=== PATIENT | male | born 1970 | race Two or more races ===

== ENCOUNTER 2016-12-14 08:21 | Emergency (ER) | payer SELFPAY ==
[2016-12-14] MEDS ORDERED: OXYCODONE-ACETAMINOPHEN 5-325 MG TABLET PO ONE (09:27)
--- NOTE | 2016-12-14 09:58 | RADIOLOGY REPORT (SQ) ---
EXAM DESCRIPTION: CT HEAD WITHOUT COMPLETED DATE/TIME: 12/14/2016 9:39 am REASON FOR STUDY: 1, fall; posterior hematoma COMPARISON: CT brain 05/22/2011, 07/25/2012, 04/01/2015 TECHNIQUE: Axial images acquired through the brain without intravenous contrast. Images reviewed wi th bone, brain and subdural windows. Images stored on PACS. All CT scanners at this facility use dose modulation, iterative reconstruction, and/or weight based d osing when appropriate to reduce radiation dose to as low as reasonably achievable (ALARA). [facility]: Dose Right [facility]: CareDose [facility]: Dose Right [facility]: Teradose 4D [facility]: Smart [employer] RADIATION DOSE: Up-to-date CT equipment and radiation dose reduction techniques were employed. CTDIv ol: 64.6 mGy. DLP: 1163 mGy-cm. mGy. LIMITATIONS: None. FINDINGS: VENTRICLES: Normal size and contour. CEREBRUM: No masses. No hemorrhage. No midline shift. No evidence for acute infarction. Normal gra y/white matter differentiation. No areas of low density in the white matter. CEREBELLUM: No masses. No hemorrhage. No alteration of density. No evidence for acute infarction. EXTRAAXIAL SPACES: No fluid collections. No masses. ORBITS AND GLOBE: No intra- or extraconal masses. Normal contour of globe without masses. CALVARIUM: No fracture. PARANASAL SINUSES: No fluid or mucosal thickening. SOFT TISSUES: Right parietal scalp hematoma without underlying skull fracture or acute intracranial h emorrhage OTHER: No other significant finding. IMPRESSION: RIGHT PARIETAL SCALP HEMATOMA WITHOUT UNDERLYING SKULL FRACTURE OR ACUTE INTRACRANIAL HE MORRHAGE. OTHERWISE, NORMAL BRAIN CT WITHOUT CONTRAST. EVIDENCE OF ACUTE STROKE: NO. COMMENT: Quality ID # [id number]: Final reports with documentation of one or more dose reduction techniques (e.g., Automated exposure control, adjustment of the mA and/or kV according to patient size, use of iterative reconstruction technique) TECHNICAL DOCUMENTATION: JOB ID: [id number]- All Rights Reserved
[2016-12-14] MEDS ORDERED: DIPH/PERTUSS(ACELL)/TETANUS VAC/PF 0.5 ML SYR (>=10YO) IM ONE (10:02)
--- NOTE | 2016-12-14 10:05 | ER Document Report ---
ED Fall - General Chief Complaint: Fall Injury Stated Complaint: HEAD INJURY Time Seen by Provider: 12/14/16 09:27 Information source: Patient Notes: 46-year-old male who presents today status post fall while at work. 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 He believes he lost consciousness. He denies being on any blood thinning medications. He denies any blurry vision, neck pain, vomiting, weakness or numbness. Patient is unsure of his tetanus status. TRAVEL OUTSIDE OF THE [place] IN LAST 30 DAYS: No - HPI Occurred: Just prior to arrival Where: Work Context: Slipped, Lost balance Associated symptoms: Lost consciousness Location of injury/pain: Other - See above Quality of pain: Achy Severity: Mild Pain Level: 1 Prehospital interventions: No: C-collar, Backboard - Related data Allergies/Adverse Reactions: No Known Allergies Allergy (Verified 12/14/16 08:45) Past Medical History - General Information source: Patient - Social History Smoking Status: Current Every Day Smoker Cigarette use (# per day): No Chew tobacco use (# tins/day): No Smoking Education Provided: No Frequency of alcohol use: None Drug Abuse: None Family History: Arthritis, CAD, CVA, DM, Hyperlipidemia, Hypertension Renal/ Medical History: Denies: Hx Peritoneal Dialysis Musculoskeltal Medical History: Reports Hx Arthritis, Reports Hx Musculoskeletal Trauma Psychiatric Medical History: Reports: Hx Depression Traumatic Medical History: Reports: Hx Fractures - clavicle Past Surgical History: Reports: Hx Abdominal Surgery - hernia x2, Hx Herniorrhaphy, Hx Inguinal Hernia - Immunizations Immunizations up to date: No Hx Diphtheria, Pertussis, Tetanus Vaccination: Yes Review of Systems - Review of Systems EENT: denies: Eye discharge, Blurred vision, Nose discharge Cardiovascular: denies: Chest pain, Palpitations Respiratory: denies: Short of breath Gastrointestinal: denies: Vomiting Musculoskeletal: denies: Back pain, Joint swelling, Muscle stiffness Skin: denies: Rash Neurological/Psychological: Other - no slurred speech -: Yes All other systems reviewed and negative Physical Exam - Vital signs Vitals: Temp Pulse Resp BP Pulse Ox 97.2 F 71 20 141/93 H 99 12/14/16 08:21 12/14/16 08:21 12/14/16 08:21 12/14/16 08:21 12/14/16 08:21 Notes: Reviewed vital signs and nursing note as charted by RN. CONSTITUTIONAL: Alert and oriented and responds appropriately to questions. Well -appearing; well-nourished HEAD: Patient has a posterior hematoma with some dried blood. No palpable skull fractures EYES: PERRL; full extraocular range of motion NECK: Supple without meningismus; non-tender CARD: Regular rate and rhythm; no murmurs RESP: Normal chest excursion without splinting or tachypnea; breath sounds clear and equal bilaterally; no tenderness to palpation of the anterior posterior ribs ABD/GI: Normal bowel sounds; non-distended; soft, non-tender BACK: The back appears normal and is non-tender to palpation EXT: Normal ROM in all joints; non-tender to palpation; no edema SKIN: No acute lesions noted other than the posterior occipital region NEURO: CN 2-12 intact. Pt has 5/5 bilateral upper and lower extremity strength with sensation intact to light touch. Pt has normal bilateral finger to nose. PSYCH: The patient's mood and manner are appropriate. Grooming and personal hygiene are appropriate. Course - Re-evaluation Re-evalutation: 12/14/16 10:04 Given the above history and physical examination we will perform a CT scan of the head and clean and irrigate the wound to evaluate for possible laceration. Patient currently has no focal neurological deficits. Tdap has been updated. 12/14/16 10:50 CT scan of the head is unremarkable other than the scalp hematoma. We have cleaned and dressed the wound appropriately. Tetanus has been updated. Patient still has no focal neurological deficits. Patient will be discharged home with strict return precautions and follow-up as needed. - Vital Signs Vital signs: Temp Pulse Resp BP Pulse Ox 97.2 F 71 20 141/93 H 99 12/14/16 08:21 12/14/16 08:21 12/14/16 08:21 12/14/16 08:21 12/14/16 08:21 Discharge - Discharge Clinical Impression: Closed head injury with brief loss of consciousness Condition: Good Disposition: HOME, SELF-CARE Additional Instructions: Come back immediately with any increased pain, blurry vision, weakness or numbness, persistent vomiting, or any other acute problems. Please follow-up with primary care physician or the [facility] as needed as we have discussed. Please apply bacitracin or Neosporin to your posterior head abrasion twice daily and keep the area clean and dry. May have some headaches, lightheadedness, dizziness during the next few weeks secondary to a possible concussion. Please do not engage in any activities that may cause a repeat head injury until your symptoms completely clear.
[2016-12-14 11:01] VITALS: BP 127/98
== END 2016-12-14 11:01 | disposition home or self-care (01) ==
LOC: ER 08:21
DX: S06.9X9A Unspecified intracranial injury with loss of consciousness of unspecified duration, initial encounter (principal); S00.03XA Contusion of scalp, initial encounter; W17.89XA Other fall from one level to another, initial encounter; Y93.89 Activity, other specified; Y99.0 Civilian activity done for income or pay; F17.200 Nicotine dependence, unspecified, uncomplicated; Z23 Encounter for immunization
CPT/HCPCS: 70450; 90471; 90715; 99284

== ENCOUNTER 2017-06-16 09:42 | Inpatient (IN) | payer SELFPAY ==
--- NOTE | 2017-06-16 10:12 | ER Document Report ---
ED Medical Screen (RME) - General Chief Complaint: Knee Pain Stated Complaint: RIGHT KNEE INJURY Time Seen by Provider: 06/16/17 10:10 Notes: pt has right knee pain for several days. 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 IN LAST 30 DAYS: No - Related Data Allergies/Adverse Reactions: No Known Allergies Allergy (Verified 06/16/17 09:44) Past Medical History - Social History Frequency of alcohol use: Rare Drug Abuse: None Renal/ Medical History: Denies: Hx Peritoneal Dialysis Musculoskeltal Medical History: Reports Hx Arthritis, Reports Hx Musculoskeletal Trauma Psychiatric Medical History: Reports: Hx Depression Traumatic Medical History: Reports: Hx Fractures - clavicle Past Surgical History: Reports: Hx Abdominal Surgery - hernia x2, Hx Herniorrhaphy, Hx Inguinal Hernia - Immunizations Immunizations up to date: No Hx Diphtheria, Pertussis, Tetanus Vaccination: Yes Physical Exam - Vital signs Vitals: Temp Pulse Resp BP Pulse Ox 98.4 F 94 16 119/67 98 06/16/17 09:51 06/16/17 09:51 06/16/17 09:51 06/16/17 09:51 06/16/17 09:51 Course - Vital Signs Vital signs: Temp Pulse Resp BP Pulse Ox 98.4 F 94 16 119/67 98 06/16/17 09:51 06/16/17 09:51 06/16/17 09:51 06/16/17 09:51 06/16/17 09:51
[2017-06-16] MEDS ORDERED: MORPHINE SULFATE 10 MG/ML INJ IV ONE (10:44)
[2017-06-16] MEDS ORDERED: PIPERACILLIN/TAZOBACTAM 4.5 GM VIAL IV ONE (10:44)
[2017-06-16] MEDS ORDERED: VANCOMYCIN HCL INJ 1000 MG VIAL IV ONE ×2 (10:44→14:15)
[2017-06-16 10:46] LABS: ABSOLUTE BASOPHILS # (AUTO) 0.2 10^3/uL (0.0-0.2); ABSOLUTE LYMPHOCYTES (AUTO) 1.4 10^3/uL (0.5-4.7); ABSOLUTE MONOCYTES (AUTO) 1.1 10^3/uL (0.1-1.4); ABSOLUTE NEUT (AUTO) 14.7 10^3/uL (1.7-8.2); BASOPHILS % (AUTO) 0.9 % (0-2); EOSINOPHILS % (AUTO) 0.2 % (0-6); HEMATOCRIT 43.3 % (37.9-51.0); HEMOGLOBIN 14.1 g/dL (13.5-17.0); LYMPHOCYTES % (AUTO) 8.2 % (13-45); MEAN CORPUSCULAR HEMOGLOBIN 27.9 pg (27.0-33.4); MEAN CORPUSCULAR HGB CONC 32.6 g/dL (32.0-36.0); MEAN CORPUSCULAR VOLUME 86 fl (80-97); MONOCYTES % (AUTO) 6.5 % (3-13); PLATELET COUNT 290 10^3/uL (150-450); RED BLOOD COUNT 5.05 10^6/uL (4.35-5.55); RED CELL DISTRIBUTION WIDTH 13.4 % (11.5-14.0); SEGMENTED NEUTROPHILS % (AUTO) 84.2 % (42-78); TOTAL CELLS COUNTED % (AUTO) 100 %; WHITE BLOOD COUNT 17.4 10^3/uL (4.0-10.5)
--- NOTE | 2017-06-16 10:47 | ER Document Report ---
ED General - General Chief Complaint: Knee Pain Stated Complaint: RIGHT KNEE INJURY Time Seen by Provider: 06/16/17 10:10 Mode of Arrival: Ambulatory Information source: Patient Notes: 47-year-old male presents with complaints of right knee pain of 3 day duration. Patient cuts would entries believes he may have gotten a splinter in his right knee. Patient notes it is difficult to move his red painful with streaking up to his groin TRAVEL OUTSIDE OF THE [place] IN LAST 30 DAYS: No - HPI Onset: Other - 2-3 days Onset/Duration: Worse Quality of pain: Sharp Severity: Moderate Pain Level: 3 Associated symptoms: Body/muscle aches Exacerbated by: Movement, Walking Relieved by: Denies Similar symptoms previously: No Recently seen / treated by doctor: No - Related Data Allergies/Adverse Reactions: No Known Allergies Allergy (Verified 06/16/17 09:44) Past Medical History - Social History Smoking Status: Current Every Day Smoker Cigarette use (# per day): Yes Chew tobacco use (# tins/day): No Smoking Education Provided: No Frequency of alcohol use: Rare Drug Abuse: None Family History: Arthritis, CAD, CVA, DM, Hyperlipidemia, Hypertension Patient has suicidal ideation: No Patient has homicidal ideation: No Renal/ Medical History: Denies: Hx Peritoneal Dialysis Musculoskeltal Medical History: Reports Hx Arthritis, Reports Hx Musculoskeletal Trauma Psychiatric Medical History: Reports: Hx Depression Traumatic Medical History: Reports: Hx Fractures - clavicle Past Surgical History: Reports: Hx Abdominal Surgery - hernia x2, Hx Herniorrhaphy, Hx Inguinal Hernia - Immunizations Immunizations up to date: No Hx Diphtheria, Pertussis, Tetanus Vaccination: Yes Review of Systems - Review of Systems Notes: REVIEW OF SYSTEMS: CONSTITUTIONAL : Denies fever, chills, or sweats. Denies recent illness. EENT: Denies eye, ear, throat, or mouth pain or symptoms. Denies nasal or sinus congestion or discharge. Denies throat, tongue, or mouth swelling or difficulty swallowing. CARDIOVASCULAR: Denies chest pain. Denies palpitations or racing or irregular heart beat. Denies ankle edema. RESPIRATORY: Denies cough, cold, or chest congestion. Denies shortness of breath, difficulty breathing, or wheezing. GASTROINTESTINAL: Denies abdominal pain or distention. Denies nausea, vomiting , or diarrhea. Denies blood in vomitus, stools, or per rectum. Denies black, tarry stools. Denies constipation. GENITOURINARY: Denies difficulty urinating, painful urination, burning, frequency, blood in urine, or discharge. MUSCULOSKELETAL: Right knee swelling SKIN: Right knee swelling redness HEMATOLOGIC : Denies easy bruising or bleeding. LYMPHATIC: Denies swollen, enlarged glands. NEUROLOGICAL: Denies confusion or altered mental status. Denies passing out or loss of consciousness. Denies dizziness or lightheadedness. Denies headache. Denies weakness or paralysis or loss of use of either side. Denies problems with gait or speech. Denies sensory loss, numbness, or tingling. Denies seizures. PSYCHIATRIC: Denies anxiety or stress. Denies depression, suicidal ideation, or homicidal ideation. ALL OTHER SYSTEMS REVIEWED AND NEGATIVE. Dictation was performed using [employer] voice recognition software PHYSICAL EXAMINATION: GENERAL: Well-appearing, well-nourished and in no acute distress. HEAD: Atraumatic, normocephalic. EYES: Pupils equal round and reactive to light, extraocular movements intact, sclera anicteric, conjunctiva are normal. ENT: Nares patent, oropharynx clear without exudates. Moist mucous membranes. NECK: Normal range of motion, supple without lymphadenopathy LUNGS: Breath sounds clear to auscultation bilaterally and equal. No wheezes rales or rhonchi. HEART: Regular rate and rhythm without murmurs ABDOMEN: Soft, nontender, nondistended abdomen. No guarding, no rebound. No masses appreciated. Musculoskeletal: Right knee is swollen limited range of motion with pain NEUROLOGICAL: Cranial nerves grossly intact. Normal speech, normal gait. Normal sensory, motor exams PSYCH: Normal mood, normal affect. SKIN: Right inguinal adenopathy, what appears to be a entrance wound of the knee itself with large effusion cellulitic component made tib-fib to mid thigh Physical Exam - Vital signs Vitals: Temp Pulse Resp BP Pulse Ox 98.4 F 94 16 119/67 98 06/16/17 09:51 06/16/17 09:51 06/16/17 09:51 06/16/17 09:51 06/16/17 09:51 Course - Re-evaluation Re-evalutation: 06/16/17 10:[address] Alba, expressed concerns for septic joint vs cellulitis, he will evaluate in ED . 06/16/17 12:06 Dr Alba does not believe it is a septic joint , requests hospitalist admission - Vital Signs Vital signs: Temp Pulse Resp BP Pulse Ox 98.4 F 94 16 119/67 98 06/16/17 09:51 06/16/17 09:51 06/16/17 09:51 06/16/17 09:51 06/16/17 09:51 - Laboratory Result Diagrams: 06/16/17 10:15 06/16/17 10:15 Laboratory results interpreted by me: 06/16/17 06/16/17 06/16/17 10:15 10:15 11:15 WBC 17.4 H Seg Neutrophils % 84.2 H Lymphocytes % 8.2 L Absolute Neutrophils 14.7 H ESR 37 H Carbon Dioxide 31 H C-Reactive Protein 55.2 H - Diagnostic Test Radiology reviewed: Image reviewed - xray 3 view notes swelling, Reports reviewed Discharge - Discharge Clinical Impression: Cellulitis Qualifiers: Site of cellulitis: extremity Site of cellulitis of extremity: lower extremity Laterality: right Qualified Code(s): L03.115 - Cellulitis of right lower limb Knee pain Qualifiers: Chronicity: acute Laterality: right Qualified Code(s): M25.561 - Pain in right knee Condition: Stable Disposition: ADMITTED INPATIENT Admitting Provider: Hospitalist Unit Admitted: Medical Floor
--- NOTE | 2017-06-16 11:14 | RADIOLOGY REPORT (SQ) ---
EXAM DESCRIPTION: KNEE RIGHT 3 VIEWS COMPLETED DATE/TIME: 06/16/2017 10:36 am REASON FOR STUDY: pain/possible fb COMPARISON: None. NUMBER OF VIEWS: Three views. TECHNIQUE: AP, lateral, and sunrise patella radiographic images acquired of the right knee. LIMITATIONS: None. FINDINGS: MINERALIZATION: Normal. BONES: No acute fracture or dislocation. No worrisome bone lesions. JOINT: No effusion. SOFT TISSUES: 4 mm radiopaque metallic object in the medial soft tissues. This appears to be near th e skin surface. Anterior soft tissue swelling. OTHER: No other significant finding. IMPRESSION: 4 MM RADIOPAQUE METALLIC OBJECT IN THE MEDIAL SOFT TISSUES. ANTERIOR SOFT TISSUE SWELLI NG. NO SIGNIFICANT BONY FINDINGS. TECHNICAL DOCUMENTATION: JOB ID: [id number] [employer]- All Rights Reserved Reading location - IP/workstation name: [email or web address]
--- NOTE | 2017-06-16 11:15 | RADIOLOGY REPORT (SQ) ---
EXAM DESCRIPTION: KNEE RIGHT 2 VIEWS COMPLETED DATE/TIME: 06/16/2017 11:03 am REASON FOR STUDY: foreign body knee, ALREADY HAVE IMAGES OF AP/LAT COMPARISON: None. NUMBER OF VIEWS: Two views. TECHNIQUE: Oblique radiographic images acquired of the right knee. LIMITATIONS: None. FINDINGS: MINERALIZATION: Normal. BONES: No acute fracture or dislocation. No worrisome bone lesions. JOINT: No effusion. SOFT TISSUES: 4 mm metallic foreign object in the medial soft tissues. Soft tissue swelling. OTHER: No other significant finding. IMPRESSION: 4 MM METALLIC FOREIGN OBJECT IN THE MEDIAL SOFT TISSUES. SOFT TISSUE SWELLING. NO SIGN IFICANT BONY FINDINGS. TECHNICAL DOCUMENTATION: JOB ID: [id number] [employer]- All Rights Reserved Reading location - IP/workstation name: [email or web address]
[2017-06-16 11:17] LABS: ALANINE AMINOTRANSFERASE 22 U/L (21-72); ALBUMIN 4.1 g/dL (3.5-5.0); ALKALINE PHOSPHATASE 93 U/L (38-126); ANION GAP 9 (5-19); ASPARTATE AMINO TRANSFERASE 18 U/L (17-59); BILIRUBIN,DIRECT 0.2 mg/dL (0.0-0.4); BILIRUBIN,TOTAL 0.6 mg/dL (0.2-1.3); BLOOD UREA NITROGEN 8 mg/dL (7-20); C-REACTIVE PROTEIN 55.2 mg/L (<10.0); CALCIUM 9.7 mg/dL (8.4-10.2); CARBON DIOXIDE 31 mmol/L (22-30); CHLORIDE 100 mmol/L (98-107); GLUCOSE 100 mg/dL (75-110); POTASSIUM 4.3 mmol/L (3.6-5.0); SODIUM 140.1 mmol/L (137-145); TOTAL PROTEIN 6.9 g/dL (6.3-8.2)
[2017-06-16 11:31] LABS: VENOUS BLOOD BASE EXCESS 0.2 mmol/L; VENOUS BLOOD HCO3 26.2 mmol/L (20-32); VENOUS BLOOD PCO2 47.6 mmHg (35-63); VENOUS BLOOD PH 7.36 (7.30-7.42)
[2017-06-16 11:44] LABS: INTERNATIONAL RATION (INR) 0.95; PROTHROMBIN TIME 13.2 SEC (11.4-15.4)
[2017-06-16] MEDS ORDERED: OXYCODONE-ACETAMINOPHEN 5-325 MG TABLET PO PRN (13:18)
[2017-06-16] MEDS ORDERED: ACETAMINOPHEN 325 MG TABLET PO PRN (13:18)
[2017-06-16] MEDS ORDERED: ONDANSETRON HCL INJ/PF 4 MG/2 ML SDV IV PRN (13:18)
[2017-06-16] MEDS ORDERED: ZOLPIDEM TARTRATE 5 MG TABLET PO PRN (13:18)
[2017-06-16] MEDS ORDERED: MAG HYDROX/AL HYDROX/SIMETH SUSP 30 ML UDCUP PO PRN (13:18)
[2017-06-16] MEDS ORDERED: VANCOMYCIN HCL 0 MG in DEXTROSE 5%-WATER 250 ML IV NR (13:30)
[2017-06-16 13:31] LABS: APPEARANCE,URINE CLEAR; BILIRUBIN,URINE NEGATIVE (NEGATIVE); COLOR,URINE STRAW; GLUCOSE, URINE NEGATIVE (NEGATIVE); KETONES,URINE NEGATIVE (NEGATIVE); LEUKOCYTE ESTERASE,URINE NEGATIVE (NEGATIVE); NITRITE,URINE NEGATIVE (NEGATIVE); PROTEIN,URINE NEGATIVE (NEGATIVE); URINE SPECIFIC GRAVITY 1.003; UROBILINOGEN,URINE NEGATIVE mg/dL (<2.0)
--- NOTE | 2017-06-16 14:12 | PDOC H&P ---
History of Present Illness Admission Date/PCP: 06/16/17 12:56 Patient complains of: Rt knee pain History of Present Illness: CHEMO WATSON is a 47 year old male with past medical history is significant only for tobacco abuse secondary to poor healthcare utilization and no primary acute care physician. He presented to the emergency department today with complaint of right knee pain, erythema, edema present for approximately 3 days. The patient works in [employer] and is concerned that he may have a splinter in the knee. He reports that he ran a fever last night that was not responsive to Tylenol. He describes pain 4 out of 5. Evaluation in the emergency department reveals normal sinus compliance, WBCs 17.4, elevated ESR and C-reactive protein. Imaging of the knee demonstrates a 4 mm metallic foreign body to the superficial tissue. Orthopedics was consulted by the emergency room physician and have ruled out septic arthritis. The patient is empirically placed on vancomycin and Zosyn. Blood cultures are pending. He is referred to the hospitalist service for admission and management of cellulitis. Past Medical History Cardiac Medical History: Reports: None Pulmonary Medical History: Reports: None EENT Medical History: Reports: None Neurological Medical History: Reports: None Endocrine Medical History: Reports: None Renal/ Medical History: Reports: None Malignancy Medical History: Reports: None GI Medical History: Reports: None Musculoskeltal Medical History: Reports: Arthritis Skin Medical History: Reports: None Psychiatric Medical History: Reports: Depression, Tobacco Dependency Traumatic Medical History: Reports: None Hematology: Reports: None Infectious Medical History: Reports: None Past Surgical History Past Surgical History: Reports: Herniorrhaphy Social History Information Source: Patient Lives with: Alone Smoking Status: Current Every Day Smoker Frequency of Alcohol Use: Rare Hx Recreational Drug Use: Yes Drugs: Marijuana Hx Prescription Drug Abuse: No - Advance Directive Resuscitation Status: Full Code Family History Family History: Arthritis, CAD, CVA, DM, Hyperlipidemia, Hypertension Parental Family History Reviewed: Yes Children Family History Reviewed: Yes Sibling(s) Family History Reviewed.: Yes Medication/Allergy Home Medications: No Home Medications 06/16/17 Allergies/Adverse Reactions: No Known Allergies Allergy (Verified 06/16/17 09:44) Review of Systems Constitutional: PRESENT: chills, fever(s). ABSENT: headache(s), weight gain, weight loss Eyes: ABSENT: visual disturbances Ears: ABSENT: hearing changes Cardiovascular: ABSENT: chest pain, dyspnea on exertion, edema, orthropnea, palpitations Respiratory: ABSENT: cough, hemoptysis Gastrointestinal: ABSENT: abdominal pain, constipation, diarrhea, hematemesis, hematochezia, nausea, vomiting Genitourinary: ABSENT: dysuria, hematuria Musculoskeletal: ABSENT: joint swelling Integumentary: PRESENT: as per HPI, erythema, wounds. ABSENT: rash Neurological: ABSENT: abnormal gait, abnormal speech, confusion, dizziness, focal weakness, syncope Psychiatric: ABSENT: anxiety, depression, homidical ideation, suicidal ideation Endocrine: ABSENT: cold intolerance, heat intolerance, polydipsia, polyuria Hematologic/Lymphatic: ABSENT: easy bleeding, easy bruising Physical Exam Vital Signs: Temp Pulse Resp BP Pulse Ox 98.4 F 94 16 119/67 98 06/16/17 09:51 06/16/17 09:51 06/16/17 09:51 06/16/17 09:51 06/16/17 09:51 General appearance: PRESENT: no acute distress, well-developed, well-nourished Head exam: PRESENT: atraumatic, normocephalic Eye exam: PRESENT: conjunctiva pink, EOMI, PERRLA. ABSENT: scleral icterus Ear exam: PRESENT: normal external ear exam Mouth exam: PRESENT: moist, tongue midline Neck exam: ABSENT: carotid bruit, JVD, lymphadenopathy, thyromegaly Respiratory exam: PRESENT: clear to auscultation dennise, symmetrical, unlabored. ABSENT: rales, rhonchi, wheezes Cardiovascular exam: PRESENT: RRR, +S1. ABSENT: diastolic murmur, rubs, systolic murmur Pulses: PRESENT: normal dorsalis pedis pul Vascular exam: PRESENT: normal capillary refill GI/Abdominal exam: PRESENT: normal bowel sounds, soft. ABSENT: distended, guarding, mass, organolmegaly, rebound, tenderness Rectal exam: PRESENT: deferred Extremities exam: PRESENT: full ROM. ABSENT: calf tenderness, clubbing, pedal edema Neurological exam: PRESENT: alert, awake, oriented to person, oriented to place , oriented to time, oriented to situation, CN II-XII grossly intact. ABSENT: motor sensory deficit Psychiatric exam: PRESENT: appropriate affect, normal mood. ABSENT: homicidal ideation, suicidal ideation Skin exam: PRESENT: dry, erythema - Erythema and edema to right knee extending to mid lower leg and to mid thigh proximally. Warm to touch. Extremely tender. , warm. ABSENT: cyanosis, intact, rash Results Impressions: Knee X-Ray 06/16/17 10:44 IMPRESSION: 4 MM METALLIC FOREIGN OBJECT IN THE MEDIAL SOFT TISSUES. SOFT TISSUE SWELLING. NO SIGNIFICANT BONY FINDINGS. Assessment & Plan - Diagnosis (1) Cellulitis Qualifiers: Site of cellulitis: extremity Site of cellulitis of extremity: lower extremity Laterality: right Qualified Code(s): L03.115 - Cellulitis of right lower limb Is this a current diagnosis for this admission?: Yes Plan: The patient is admitted with cellulitis of the right knee from a possible puncture injury approximately 3 days ago. Patient is currently afebrile but did have fever overnight. Leukocytosis with WBCs 217. Elevated sed rate and C- reactive protein. Orthopedics was consulted by the emergency department physician and ruled out septic arthritis. Imaging of the knee demonstrates a 4 mm metallic foreign body to the medial soft tissues. Soft tissue swelling. But no significant bony findings. Blood cultures are pending. The patient is admitted to the medical floor. He is empirically placed on IV vancomycin and Zosyn; we will adjust as cultures result. Oxycodone as needed for pain. Antiemetics as needed. Tylenol as needed for pain or fever. Elevate the extremity. We will consult surgery to evaluate for possible abscess developing to the patellar region as well as for possible foreign body removal. We will consult physical therapy. We will consult discharge planning to assess his needs. Heparin for DVT prophylaxis. (2) Leukocytosis Qualifiers: Leukocytosis type: bandemia Qualified Code(s): D72.825 - Bandemia Is this a current diagnosis for this admission?: Yes Plan: Secondary to cellulitis. Additionally evaluated urinalysis which is negative for UTI. Blood and urine cultures are pending. We will continue to monitor. Plan as above. (3) Tobacco dependency Is this a current diagnosis for this admission?: Yes Plan: Smoking cessation is encouraged; nicotine with placement therapies are provided. (4) Knee pain Qualifiers: Chronicity: acute Laterality: right Qualified Code(s): M25.561 - Pain in right knee Is this a current diagnosis for this admission?: Yes Plan: Secondary to cellulitis. Oxycodone and Tylenol as needed for pain. - Time Time Spent: 50 to 70 Minutes Smoking Cessation Education: 3 to 10 minutes Medications reviewed and adjusted accordingly: Yes Anticipated discharge: Home
--- NOTE | 2017-06-16 15:12 | EKG REPORT ---
SEVERITY:- NORMAL ECG - SINUS RHYTHM : Confirmed by: Ish Styles 16-Jun-2017 15:11:56
--- NOTE | 2017-06-16 16:53 | PDOC CONSULTATION ---
History of Present Illness Admission Date/PCP: 06/16/17 12:56 Patient complains of: Right knee pain History of Present Illness: CHEMO WATSON is a 47 year old male who presents to emergency room with increasing redness and swelling of his right knee. He feels as though he had original injury from a splinter but then noticed redness and swelling of his knee and difficulty weightbearing worsened over the past 72 hours. While in the emergency room he did receive morphine which improved his discomfort. Current pain 09/09. Past Medical History Cardiac Medical History: Reports: None Pulmonary Medical History: Reports: None EENT Medical History: Reports: None Neurological Medical History: Reports: None Endocrine Medical History: Reports: None Renal/ Medical History: Reports: None Malignancy Medical History: Reports: None GI Medical History: Reports: None Musculoskeltal Medical History: Reports: Arthritis Skin Medical History: Reports: None Psychiatric Medical History: Reports: Depression, Tobacco Dependency Traumatic Medical History: Reports: None Hematology: Reports: None Infectious Medical History: Reports: None Past Surgical History Past Surgical History: Reports: Herniorrhaphy Social History Lives with: Alone Smoking Status: Current Every Day Smoker Frequency of Alcohol Use: Rare Hx Recreational Drug Use: Yes Drugs: Marijuana Hx Prescription Drug Abuse: No - Advance Directive Resuscitation Status: Full Code Family History Family History: Arthritis, CAD, CVA, DM, Hyperlipidemia, Hypertension Parental Family History Reviewed: No Children Family History Reviewed: No Sibling(s) Family History Reviewed.: No Medication/Allergy Home Medications: No Home Medications 06/16/17 Allergies/Adverse Reactions: No Known Allergies Allergy (Verified 06/16/17 09:44) Review of Systems Constitutional: PRESENT: chills, fever(s). ABSENT: headache(s), weight gain, weight loss Eyes: ABSENT: visual disturbances Ears: ABSENT: hearing changes Cardiovascular: ABSENT: chest pain, dyspnea on exertion, edema, orthropnea, palpitations Respiratory: ABSENT: cough, hemoptysis Gastrointestinal: ABSENT: abdominal pain, constipation, diarrhea, hematemesis, hematochezia, nausea, vomiting Genitourinary: ABSENT: dysuria, hematuria Musculoskeletal: PRESENT: as per HPI Integumentary: ABSENT: rash, wounds Neurological: ABSENT: abnormal gait, abnormal speech, confusion, dizziness, focal weakness, syncope Psychiatric: ABSENT: anxiety, depression, homidical ideation, suicidal ideation Endocrine: ABSENT: cold intolerance, heat intolerance, menstrual abnormalities, polydipsia, polyuria Hematologic/Lymphatic: ABSENT: easy bleeding, easy bruising, lymphadenopathy Physical Exam Vital Signs: Temp Pulse Resp BP Pulse Ox 98.4 F 83 17 124/72 99 06/16/17 15:47 06/16/17 15:47 06/16/17 15:47 06/16/17 15:47 06/16/17 15:47 General appearance: PRESENT: no acute distress, well-developed, well-nourished Head exam: PRESENT: atraumatic, normocephalic Eye exam: PRESENT: conjunctiva pink, EOMI, PERRLA. ABSENT: scleral icterus Ear exam: PRESENT: normal external ear exam Mouth exam: PRESENT: moist, tongue midline Neck exam: PRESENT: full ROM. ABSENT: carotid bruit, JVD, lymphadenopathy, thyromegaly Cardiovascular exam: PRESENT: RRR. ABSENT: diastolic murmur, rubs, systolic murmur Pulses: PRESENT: normal dorsalis pedis pul, +2 pedal pulses bilateral Vascular exam: PRESENT: normal capillary refill GI/Abdominal exam: PRESENT: normal bowel sounds, soft. ABSENT: distended, guarding, mass, organolmegaly, rebound, tenderness Rectal exam: PRESENT: deferred Musculoskeletal exam: PRESENT: other - Right knee: Redness and erythema along the anterior aspect of the knee with streaking proximally. Palpable lymphadenopathy along the femoral lymph nodes. Knee range of motion 0-90. Pain with forced terminal flexion. No joint line tenderness. No palpable fluctuance. No evidence of prepatellar bursitis. Small superficial wound along the anterior medial aspect of the wound without active drainage. Unable to express purulence or drainage from the anterior abrasion. Neurological exam: PRESENT: alert, awake, oriented to person, oriented to place , oriented to time, oriented to situation, CN II-XII grossly intact. ABSENT: motor sensory deficit Psychiatric exam: PRESENT: appropriate affect, normal mood. ABSENT: homicidal ideation, suicidal ideation Skin exam: PRESENT: dry, intact, warm. ABSENT: cyanosis, rash Results Impressions: Knee X-Ray 06/16/17 10:44 IMPRESSION: 4 MM METALLIC FOREIGN OBJECT IN THE MEDIAL SOFT TISSUES. SOFT TISSUE SWELLING. NO SIGNIFICANT BONY FINDINGS. Status: Image reviewed by me - I have reviewed patient's radiographs demonstrate soft tissue swelling no evidence of foreign body at associated area. No evidence of effusion. Assessment & Plan - Diagnosis (1) Cellulitis Qualifiers: Site of cellulitis: extremity Site of cellulitis of extremity: lower extremity Laterality: right Qualified Code(s): L03.115 - Cellulitis of right lower limb Is this a current diagnosis for this admission?: Yes Plan: Patient has findings of cellulitis along the anterior aspect of the knee no associated septic arthritis or prepatellar bursitis is appreciated. There is concern of possible foreign body at this point I am unable to palpate foreign body or area of fluctuance area may define itself after antibiotics as the cause of his cellulitis however superficial wound could ultimately contribute to patient's findings. At this point patient will be treated with IV antibiotics if his symptoms significantly improved and there is no evidence of foci such as foreign body would recommend outpatient antibiotics. We will continue to follow patient clinically.
[2017-06-16] MEDS: HEPARIN SOD (PORCINE) 5,000 UNIT/ML 1 ML SYRINGE SUBCUT SCH ×2 (18:22→21:26)
[2017-06-16] MEDS: PIPERACILLIN SODIUM/TAZOBACTAM 3.375 GM in NORMAL SALINE 100 ML IV SCH ×2 (18:37→23:49)
[2017-06-16] MEDS: OXYCODONE-ACETAMINOPHEN 5-325 MG TABLET PO PRN ×2 (18:37→23:44)
[2017-06-16] MEDS: FAMOTIDINE 20 MG TABLET PO SCH (21:20)
[2017-06-16] MEDS ORDERED: VANCOMYCIN HCL 1,250 MG in DEXTROSE 5%-WATER 250 ML IV SCH (22:00)
[2017-06-17] MEDS: PIPERACILLIN SODIUM/TAZOBACTAM 3.375 GM in NORMAL SALINE 100 ML IV SCH ×3 (05:13→17:09)
[2017-06-17] MEDS: HEPARIN SOD (PORCINE) 5,000 UNIT/ML 1 ML SYRINGE SUBCUT SCH ×3 (05:15→21:11)
[2017-06-17] MEDS: OXYCODONE-ACETAMINOPHEN 5-325 MG TABLET PO PRN ×3 (06:15→23:07)
[2017-06-17 06:34] LABS: ABSOLUTE BASOPHILS # (AUTO) 0.1 10^3/uL (0.0-0.2); ABSOLUTE EOSINOPHILS # (AUTO) 0.1 10^3/uL (0.0-0.6); ABSOLUTE LYMPHOCYTES (AUTO) 1.7 10^3/uL (0.5-4.7); ABSOLUTE MONOCYTES (AUTO) 1.5 10^3/uL (0.1-1.4); ABSOLUTE NEUT (AUTO) 14.1 10^3/uL (1.7-8.2); BASOPHILS % (AUTO) 0.5 % (0-2); EOSINOPHILS % (AUTO) 0.5 % (0-6); HEMATOCRIT 40.1 % (37.9-51.0); HEMOGLOBIN 13.3 g/dL (13.5-17.0); LYMPHOCYTES % (AUTO) 9.6 % (13-45); MEAN CORPUSCULAR HEMOGLOBIN 28.5 pg (27.0-33.4); MEAN CORPUSCULAR HGB CONC 33.3 g/dL (32.0-36.0); MEAN CORPUSCULAR VOLUME 86 fl (80-97); MONOCYTES % (AUTO) 8.5 % (3-13); PLATELET COUNT 261 10^3/uL (150-450); RED BLOOD COUNT 4.68 10^6/uL (4.35-5.55); RED CELL DISTRIBUTION WIDTH 13.4 % (11.5-14.0); SEGMENTED NEUTROPHILS % (AUTO) 80.9 % (42-78); TOTAL CELLS COUNTED % (AUTO) 100 %; WHITE BLOOD COUNT 17.4 10^3/uL (4.0-10.5)
[2017-06-17 06:54] LABS: ANION GAP 11 (5-19); BLOOD UREA NITROGEN 8 mg/dL (7-20); CALCIUM 9.1 mg/dL (8.4-10.2); CARBON DIOXIDE 25 mmol/L (22-30); CHLORIDE 106 mmol/L (98-107); GLUCOSE 75 mg/dL (75-110); POTASSIUM 3.9 mmol/L (3.6-5.0)
[2017-06-17] MEDS: VANCOMYCIN HCL 1,250 MG in DEXTROSE 5%-WATER 250 ML IV SCH ×2 (07:32→21:10)
[2017-06-17] MEDS: NICOTINE 14 MG/24 HR PATCH.TD24 TD PRN (07:42)
--- NOTE | 2017-06-17 08:01 | PDOC PROGRESS REPORT ---
Subjective Progress Note for:: 06/17/17 Subjective:: Patient continues to complain of pain at his right knee but does feel as though it has somewhat improved. Has not had any fever chills since admission. Reason For Visit: CELLULITIS Physical Exam Vital Signs: Temp Pulse Resp BP Pulse Ox 99.3 F 84 16 109/70 98 06/16/17 23:29 06/16/17 23:29 06/16/17 23:29 06/16/17 23:29 06/16/17 23:29 Intake & Output 06/16/17 06/17/17 06/18/17 06:59 06:59 06:59 Intake Total 540 Output Total 500 Balance 40 Weight 68.7 kg Musculoskeletal exam: PRESENT: other - Right knee: Area of erythema anteriorly has notably improved. Continues to have erythema along the anterior surface of the knee proximal to the prepatellar bursa. No evidence of effusion. Patient has full extension with flexion to approximately 110 which has improved compared to previous examination. Upon palpation there is a small amount of purulence expressed anteriorly. No abscess appreciated. No evidence of streaking erythema proximally or distally. Results Laboratory Results: 06/17/17 05:15 06/17/17 05:15 06/17/17 06/17/17 05:15 05:15 WBC 17.4 H RBC 4.68 Hgb 13.3 L Hct 40.1 MCV 86 MCH 28.5 MCHC 33.3 RDW 13.4 Plt Count 261 Seg Neutrophils % 80.9 H Lymphocytes % 9.6 L Monocytes % 8.5 Eosinophils % 0.5 Basophils % 0.5 Absolute Neutrophils 14.1 H Absolute Lymphocytes 1.7 Absolute Monocytes 1.5 H Absolute Eosinophils 0.1 Absolute Basophils 0.1 Sodium 142.0 Potassium 3.9 Chloride 106 Carbon Dioxide 25 Anion Gap 11 BUN 8 Creatinine 0.85 Est GFR ( Amer) > 60 Est GFR (Non-Af Amer) > 60 Glucose 75 Calcium 9.1 Impressions: Knee X-Ray 06/16/17 10:44 IMPRESSION: 4 MM METALLIC FOREIGN OBJECT IN THE MEDIAL SOFT TISSUES. SOFT TISSUE SWELLING. NO SIGNIFICANT BONY FINDINGS. Assessment & Plan - Diagnosis (1) Cellulitis Qualifiers: Site of cellulitis: extremity Site of cellulitis of extremity: lower extremity Laterality: right Qualified Code(s): L03.115 - Cellulitis of right lower limb Is this a current diagnosis for this admission?: Yes Plan: Clinically patient has improved however there is not significant improvement in terms of his leukocytosis. Underlying retained foreign body remains within the differential I do not appreciate large abscess however. A 2 mm amount of purulence was expressed along the anterior aspect of the knee but I was unable to palpate any remaining purulence or express any additional purulence. I have recommended continuing IV antibiotics however if patient does not see improvement would consider MRI to evaluate for definitive abscess.
[2017-06-17] MEDS: FAMOTIDINE 20 MG TABLET PO SCH ×2 (09:55→21:11)
[2017-06-17] MEDS ORDERED: LORAZEPAM INJ 2 MG/1 ML VIAL IV ONE (11:25)
[2017-06-17] MEDS ORDERED: ACETAMINOPHEN SOLN 325 MG/10.15 ML UDCUP PO ONE (12:00)
[2017-06-17] MEDS: ONDANSETRON HCL INJ/PF 4 MG/2 ML SDV IV PRN (13:20)
--- NOTE | 2017-06-17 16:37 | PDOC PROGRESS REPORT ---
Subjective Progress Note for:: 06/17/17 Subjective:: CHEMO WATSON is a 47 year old male with a PMH of tobacco abuse secondary to poor health care utilization and no primary geriatric care manager. Presented to the emergency department 06/16/2017 with complaints of right knee pain, erythema, edema present for approximately 3 days. The patient works in [employer] is concerned that he may have a splinter in his knee. Imaging of the knee demonstrates a 4 mm metallic foreign body to the superficial tissue. Orthopedics was consulted by ER physician and have ruled out septic arthritis, but concern for underlying abscess. Patient is empirically on vancomycin and Zosyn. The patient was seen this morning on rounds, he is resting in bed on room air. The patient states he does not feel better but he does not feel worse compared to yesterday. According to Dr. Alba of Orthopedics, the patient's R knee appears to have clinically improved. That being said, the patient's leukocytosis (WBC 17) remains the same, and the patient spiked a fever today to 101. Will continue empiric antibiotic coverage, no plan to pursue MRI at this time given the improvement in appearance of the R knee. If the patient's condition should worsen, will need to consult with Ortho and Radiologist about how to evaluate for abscess in R knee (MRI will be difficult given the 4mm metalic object in superficial tissue). Earlier today, the patient endorsed left-sided chest pain. It was nonradiating and not reproducible with palpation. EKG demonstrated sinus tachycardia with no evidence of infarction or ischemia. Troponin <0.012. At the time of this episode, the patient reported he was very stressed out because he believed that he was going to "lose his right leg." The patient was given 1 mg IV Ativan for his anxiety. Reason For Visit: CELLULITIS Physical Exam Vital Signs: Temp Pulse Resp BP Pulse Ox 101.0 F H 106 H 18 134/78 H 99 06/17/17 10:59 06/17/17 10:59 06/17/17 10:59 06/17/17 10:59 06/17/17 10:59 Intake & Output 06/16/17 06/17/17 06/18/17 06:59 06:59 06:59 Intake Total 540 Output Total 500 Balance 40 Weight 68.7 kg General appearance: PRESENT: no acute distress, well-developed, well-nourished Head exam: PRESENT: atraumatic Eye exam: PRESENT: conjunctiva pink, PERRLA Mouth exam: PRESENT: moist Neck exam: PRESENT: full ROM Respiratory exam: PRESENT: clear to auscultation dennise, symmetrical, unlabored Cardiovascular exam: PRESENT: +S1, +S2, tachycardia Pulses: PRESENT: normal radial pulses, normal dorsalis pedis pul GI/Abdominal exam: PRESENT: normal bowel sounds, soft. ABSENT: tenderness Rectal exam: PRESENT: deferred Extremities exam: PRESENT: full ROM Musculoskeletal exam: PRESENT: full ROM, tenderness - Right knee Neurological exam: PRESENT: alert, awake, oriented to person, oriented to place , oriented to time, oriented to situation Psychiatric exam: PRESENT: anxious, appropriate affect Results Laboratory Results: 06/17/17 05:15 06/17/17 05:15 06/17/17 06/17/17 05:15 05:15 WBC 17.4 H RBC 4.68 Hgb 13.3 L Hct 40.1 MCV 86 MCH 28.5 MCHC 33.3 RDW 13.4 Plt Count 261 Seg Neutrophils % 80.9 H Lymphocytes % 9.6 L Monocytes % 8.5 Eosinophils % 0.5 Basophils % 0.5 Absolute Neutrophils 14.1 H Absolute Lymphocytes 1.7 Absolute Monocytes 1.5 H Absolute Eosinophils 0.1 Absolute Basophils 0.1 Sodium 142.0 Potassium 3.9 Chloride 106 Carbon Dioxide 25 Anion Gap 11 BUN 8 Creatinine 0.85 Est GFR ( Amer) > 60 Est GFR (Non-Af Amer) > 60 Glucose 75 Calcium 9.1 06/17/17 11:45 Troponin I < 0.012 Impressions: Knee X-Ray 06/16/17 10:44 IMPRESSION: 4 MM METALLIC FOREIGN OBJECT IN THE MEDIAL SOFT TISSUES. SOFT TISSUE SWELLING. NO SIGNIFICANT BONY FINDINGS. Status: Imported from PACS Assessment & Plan - Diagnosis (1) Chest pain Qualifiers: Chest pain type: unspecified Qualified Code(s): R07.9 - Chest pain, unspecified Is this a current diagnosis for this admission?: Yes Plan: Earlier this morning the patient began complaining of left-sided anterior wall chest pain. He states that his pain is nonradiating, and it is not reproducible with palpation. The patient denies SOB. The patient states that he is very anxious and stressed about potentially "losing his right leg." Despite being reassured that his leg will likely NOT require amputation, the patient remains relatively anxious. EKG demonstrates sinus tachycardia, no evidence of acute ischemia or infarction. Troponin<0.012, will trend x 2. Administered 1 mg Ativan IV for anxiety. This seems to have helped, no plan for further intervention at this time. (2) Cellulitis Qualifiers: Site of cellulitis: extremity Site of cellulitis of extremity: lower extremity Laterality: right Qualified Code(s): L03.115 - Cellulitis of right lower limb Is this a current diagnosis for this admission?: Yes Plan: The patient is admitted with cellulitis to the right knee from a possible puncture injury approximately 3 days ago. Patient did spike a fever to 101 today. Leukocytosis remains unchanged, WBC 17 Orthopedics was consulted by ER MD, they do not feel that the patient is demonstrating signs and symptoms of a septic joint. However, should the patient clinically deteriorate, there is a possibility of an abscess formation in the right knee. Imaging of the knee demonstrates a 4 mm metallic foreign body to the medial soft tissue. + Soft tissue swelling, but no significant bony findings. Blood cultures pending. Wound culture completed today. Admit to the medical floor. Empirically placed on IV vancomycin and Zosyn, will adjust his cultures result. P.o. oxycodone as needed for pain. Antiemetics as needed. Tylenol as needed for pain or fever. Elevate the extremity. Consult PT and discharge planning to assess for needs. SQ heparin for DVT PPX. (3) Leukocytosis Qualifiers: Leukocytosis type: bandemia Qualified Code(s): D72.825 - Bandemia Is this a current diagnosis for this admission?: Yes Plan: Secondary to cellulitis. Additionally evaluated urinalysis which is negative for UTI. Blood, urine, and wound culture pending. Plan as above. (4) Knee pain Qualifiers: Chronicity: acute Laterality: right Qualified Code(s): M25.561 - Pain in right knee Is this a current diagnosis for this admission?: Yes Plan: Secondary to cellulitis. Oxycodone and Tylenol as needed for pain. (5) Tobacco dependency Is this a current diagnosis for this admission?: Yes Plan: Smoking cessation is encouraged. Nicotine replacement therapies have been offered. - Time Time Spent with patient: 15-24 minutes Medications reviewed and adjusted accordingly: Yes Anticipated discharge: Home - Inpatient Certification Based on my medical assessment, after consideration of the patient's comorbidities, presenting symptoms, or acuity I expect that the services needed warrant INPATIENT care.: Yes I certify that my determination is in accordance with my understanding of Medicare's requirements for reasonable and necessary INPATIENT services [42 CFR 412.3e].: Yes Medical Necessity: Need for IV Antibiotics, Risk of Complication if Not Cared For in Hospital - Plan Summary Plan Summary: The plan is to continue broad-spectrum antibiotics. If the patient should clinically decline, low threshold for consulting ortho and radiology on how to assess for possible abscess in right knee.
--- NOTE | 2017-06-17 20:57 | EKG REPORT ---
SEVERITY:- BORDERLINE ECG - SINUS TACHYCARDIA PROBABLE LEFT ATRIAL ABNORMALITY : Confirmed by: Ish Styles 17-Jun-2017 20:56:27
[2017-06-18] MEDS: PIPERACILLIN SODIUM/TAZOBACTAM 3.375 GM in NORMAL SALINE 100 ML IV SCH ×4 (00:14→17:01)
[2017-06-18 05:16] LABS: ABSOLUTE BASOPHILS # (AUTO) 0.1 10^3/uL (0.0-0.2); ABSOLUTE EOSINOPHILS # (AUTO) 0.1 10^3/uL (0.0-0.6); ABSOLUTE LYMPHOCYTES (AUTO) 1.7 10^3/uL (0.5-4.7); ABSOLUTE MONOCYTES (AUTO) 1.3 10^3/uL (0.1-1.4); ABSOLUTE NEUT (AUTO) 12.5 10^3/uL (1.7-8.2); BASOPHILS % (AUTO) 0.4 % (0-2); EOSINOPHILS % (AUTO) 0.5 % (0-6); HEMATOCRIT 39.4 % (37.9-51.0); LYMPHOCYTES % (AUTO) 10.9 % (13-45); MEAN CORPUSCULAR HEMOGLOBIN 28.1 pg (27.0-33.4); MEAN CORPUSCULAR HGB CONC 33.1 g/dL (32.0-36.0); MEAN CORPUSCULAR VOLUME 85 fl (80-97); MONOCYTES % (AUTO) 8.5 % (3-13); PLATELET COUNT 290 10^3/uL (150-450); RED BLOOD COUNT 4.64 10^6/uL (4.35-5.55); SEGMENTED NEUTROPHILS % (AUTO) 79.7 % (42-78); TOTAL CELLS COUNTED % (AUTO) 100 %; WHITE BLOOD COUNT 15.7 10^3/uL (4.0-10.5)
[2017-06-18 05:39] LABS: ANION GAP 11 (5-19); BLOOD UREA NITROGEN 8 mg/dL (7-20); CALCIUM 9.3 mg/dL (8.4-10.2); CARBON DIOXIDE 28 mmol/L (22-30); CHLORIDE 101 mmol/L (98-107); GLUCOSE 99 mg/dL (75-110); PHOSPHORUS 4.3 mg/dL (2.5-4.5); POTASSIUM 3.9 mmol/L (3.6-5.0); SODIUM 140.3 mmol/L (137-145)
[2017-06-18] MEDS: HEPARIN SOD (PORCINE) 5,000 UNIT/ML 1 ML SYRINGE SUBCUT SCH ×3 (05:44→21:07)
[2017-06-18] MEDS: OXYCODONE-ACETAMINOPHEN 5-325 MG TABLET PO PRN ×2 (05:45→21:17)
[2017-06-18] MEDS: VANCOMYCIN HCL 1,250 MG in DEXTROSE 5%-WATER 250 ML IV SCH ×2 (07:40→21:07)
[2017-06-18] MEDS: NICOTINE 14 MG/24 HR PATCH.TD24 TD PRN (07:41)
[2017-06-18] MEDS ORDERED: GLUCAGON,HUMAN RECOMB 1 MG INJ SUBCUT PRN (08:12)
[2017-06-18] MEDS ORDERED: DEXTROSE 40% GEL 15 GM TUBE PO PRN ×2 (08:12)
[2017-06-18] MEDS ORDERED: DEXTROSE 50%-WATER 25 GM/50 ML DISP.SYRIN IV PRN ×2 (08:12)
[2017-06-18] MEDS ORDERED: OXYCODONE-ACETAMINOPHEN 5-325 MG TABLET PO PRN (09:13)
[2017-06-18] MEDS: FAMOTIDINE 20 MG TABLET PO SCH ×2 (09:29→21:07)
--- NOTE | 2017-06-18 09:50 | RADIOLOGY REPORT (SQ) ---
EXAM DESCRIPTION: U/S EXTREMITY NONVASCULAR COMP COMPLETED DATE/TIME: 06/18/2017 9:21 am REASON FOR STUDY: swelling and redness to knee , and cellulitis/infection evaluate for abscess or purvi int effusion COMPARISON: None. TECHNIQUE: Static and real time whitley scale ultrasound Doppler spectral analysis, and color Doppler o f the right knee soft tissues, joint space and suprapatellar recess. Patient was scanned by both mys elf as well as the technologist. LIMITATIONS: None. FINDINGS: A less than 5 mm foreign body is present in the subcutaneous fat medial right knee soft ti ssues. Patient states this has been there since he was 10 years old, but does not know the compositi on of the foreign body. Diffuse phlegmon with edema/interstitial fluid and increased color flow is seen throughout the right distal thigh and medial knee subcutaneous fat. No well circumscribed abscess is identified. Area of involvement is at least 10 to 12 cm in diameter. There is no suprapatellar knee joint effusion identified. No discrete prepatellar bursa fluid collec tion identified. Patellar and quadriceps tendons, right knee medial recess and lateral recess are unremarkable. Findings were discussed with Dr. Alba, 0900 hours 06/18/2017. IMPRESSION: Diffuse phlegmon in the subcutaneous tissues medial right knee. No well circumscribed a bscess is identified at this time. No suprapatellar knee joint effusion No prepatellar bursa fluid collection TECHNICAL DOCUMENTATION: JOB ID: [id number] All Rights Reserved Reading location - IP/workstation name: [email or web address]
[2017-06-18] MEDS: FENTANYL CITRATE INJ/PF 100 MCG/2 ML AMPUL IV PRN ×3 (11:28→17:01)
--- NOTE | 2017-06-18 12:01 | RADIOLOGY REPORT (SQ) ---
EXAM DESCRIPTION: CT RT LOWER EXTREMITY WITH COMPLETED DATE/TIME: 06/18/2017 10:57 am REASON FOR STUDY: redness and edema of Right Knee COMPARISON: None. TECHNIQUE: Postcontrast axial imaging performed through the right knee with reformatted coronal and sagittal imaging windowed for bone and soft tissues. Images saved to PACS. 3D IMAGING: Were 3D images as MIP, SSD, or volume rendering performed at the work station? No. All CT scanners at this facility use dose modulation, iterative reconstruction, and/or weight based d osing when appropriate to reduce radiation dose to as low as reasonably achievable (ALARA). [facility]: Dose Right [facility]: CareDose [facility]: Dose Right [facility]: Teradose 4D [facility]: [email or web address] CONTRAST TYPE AND DOSE: contrast/concentration: Isovue 370.00 mg/ml; Total Contrast Delivered: 75.0 ml; Total Saline Delivered: 80.0 ml RENAL FUNCTION: None required. The patient is less than 50 years old. LIMITATIONS: None. RADIATION DOSE: CT Rad equipment meets quality standard of care and radiation dose reduction techniq ues were employed. CTDIvol: 4.7 mGy. DLP: 170 mGy-cm.mGy. FINDINGS: SOFT TISSUES: Please correlate with the earlier ultrasound. Subcutaneous edema and ill-de fined fluid in the region of interest anteriorly. No well-defined simple loculated collection sugges pasquale. There is skin thickening present. No foreign body detected. No joint effusion. BONES: Intact. MINERALIZATION: Normal. OTHER: No other significant finding. IMPRESSION: 1. The CT examination adds little to the previously noted soft tissue findings detected on ultrasound earlier today. Please correlate with that report. 2. No bone pathology detected. TECHNICAL DOCUMENTATION: JOB ID: [id number] Quality ID # [id number]: Final reports with documentation of one or more dose reduction techniques (e.g., Au tomated exposure control, adjustment of the mA and/or kV according to patient size, use of iterative reconstruction technique) 2010 [employer]- All Rights Reserved Reading location - IP/workstation name: [email or web address]
--- NOTE | 2017-06-18 14:04 | PDOC PROGRESS REPORT ---
Subjective Progress Note for:: 06/18/17 Subjective:: Patient lying recombinant in hospital bed noting his knee hurts presently. He notes the pain is worse than yesterday and he hopes for something to be done about it today. Denies tingling, numbness, chest pain or shortness of breath. Reason For Visit: CELLULITIS Physical Exam Vital Signs: Temp Pulse Resp BP Pulse Ox 37.6 C 77 16 117/69 99 06/18/17 12:00 06/18/17 12:00 06/18/17 12:00 06/18/17 12:00 06/18/17 12:00 Intake & Output 06/17/17 06/18/17 06/19/17 06:59 06:59 06:59 Intake Total 540 891 Output Total 500 975 400 Balance 40 -84 -400 Weight 68.7 kg 65.4 kg General appearance: PRESENT: mild distress Head exam: PRESENT: atraumatic, normocephalic Extremities exam: PRESENT: tenderness Additional comments: patient lying recombinant in hospital bed with bilateral knees flexed. The right knee has focal area of edema, and eryhtema. The erythema from the day previous was outlined in skin marking pen. The eryhtma today extends outside this margin. There is a fluctuant bulla filled with purulent material along the anterior aspect of the right patella. This bulla and particularly medial aspect of the erythematous and edematous area is exquisitely tender to palpation. No purulent drainage is expressed with palpation. Knee is warm on palpation as well. He exhibites full passive range of motion. No sensory or motor deficits noted. +2 dorsalis pedis pulse and less than 2 seconds capillary refill to toes on left foot. Musculoskeletal exam: PRESENT: ambulatory Additional comments: Patient is ambulatory, however, notes pain in left knee with weight bearing. Psychiatric exam: PRESENT: appropriate affect, normal mood. ABSENT: homicidal ideation, suicidal ideation Results Laboratory Results: 06/18/17 05:06 06/18/17 05:06 06/18/17 06/18/17 06/18/17 05:06 05:06 09:32 WBC 15.7 H RBC 4.64 Hgb 13.0 L Hct 39.4 MCV 85 MCH 28.1 MCHC 33.1 RDW 13.0 Plt Count 290 Seg Neutrophils % 79.7 H Lymphocytes % 10.9 L Monocytes % 8.5 Eosinophils % 0.5 Basophils % 0.4 Absolute Neutrophils 12.5 H Absolute Lymphocytes 1.7 Absolute Monocytes 1.3 Absolute Eosinophils 0.1 Absolute Basophils 0.1 Sodium 140.3 Potassium 3.9 Chloride 101 Carbon Dioxide 28 Anion Gap 11 BUN 8 Creatinine 0.82 Est GFR ( Amer) > 60 Est GFR (Non-Af Amer) > 60 Glucose 99 Calcium 9.3 Phosphorus 4.3 Magnesium 2.0 Blood Type B POSITIVE Antibody Screen NEGATIVE 06/17/17 06/17/17 06/17/17 11:45 17:40 23:37 Troponin I < 0.012 < 0.012 < 0.012 Impressions: Knee X-Ray 06/16/17 10:44 IMPRESSION: 4 MM METALLIC FOREIGN OBJECT IN THE MEDIAL SOFT TISSUES. SOFT TISSUE SWELLING. NO SIGNIFICANT BONY FINDINGS. Extremity Ultrasound 06/18/17 00:00 IMPRESSION: Diffuse phlegmon in the subcutaneous tissues medial right knee. No well circumscribed abscess is identified at this time. No suprapatellar knee joint effusion No prepatellar bursa fluid collection Lower Extremity CT 06/18/17 00:00 IMPRESSION: 1. The CT examination adds little to the previously noted soft tissue findings detected on ultrasound earlier today. Please correlate with that report. 2. No bone pathology detected. Assessment & Plan - Diagnosis (1) Cellulitis Qualifiers: Site of cellulitis: extremity Site of cellulitis of extremity: lower extremity Laterality: right Qualified Code(s): L03.115 - Cellulitis of right lower limb Is this a current diagnosis for this admission?: Yes Plan: 47 yo male with cellulitis of left knee from possible puncture injury. US imaging reveals superficial phlegmon and no evidence of deep abscess, joint effusion. CT with contrast confirms similar results to ultrasound, no bone pathology detected. Preliminary blood cultures remain negative for growth of bacteria or other organisms and his leucocytosis has improved from 17 previously to 15 today. Clinically, his margins of erythema have expanded and superficial purulent bulla is present, yet no abscess formation is appreciated. At this time patient will remain on IV antibiotics and under observation. If symptoms worsen by tomorrow, patient may be placed on the OR schedule for surgical I&D of the left knee.
[2017-06-18] MEDS ORDERED: NORMAL SALINE 1000 ML 1,000 ML IV PRN (14:28)
[2017-06-18] MEDS ORDERED: METOCLOPRAMIDE HCL INJ/PF 10 MG/2 ML SDV IV ONE (14:36)
[2017-06-18] MEDS: ONDANSETRON HCL INJ/PF 4 MG/2 ML SDV IV PRN (14:43)
--- NOTE | 2017-06-18 16:03 | PDOC PROGRESS REPORT ---
Subjective Progress Note for:: 06/18/17 Subjective:: CHEMO WATSON is a 47 year old male with a PMH of tobacco abuse . Presented to the emergency department 06/16/2017 with complaints of right knee pain, erythema, edema present for approximately 3 days. Imaging of the knee demonstrates a 4 mm metallic foreign body to the superficial tissue. Orthopedics was consulted by ER physician and have ruled out septic arthritis, but concern for underlying abscess. Patient is empirically on vancomycin and Zosyn. The patient was seen this morning on rounds, he is resting in bed on room air. He is complaining of 4 out of 5 pain to the right knee. Clinically, the margins of erythema have expanded and there is a new superficial purulent bulla present on the anterior aspect of the right knee, almost directly over the patella. Dr. Alba of orthopedics has been made aware. The patient is currently awaiting reevaluation by orthopedics. Reason For Visit: CELLULITIS Physical Exam Vital Signs: Temp Pulse Resp BP Pulse Ox 98.6 F 91 20 128/73 H 98 06/18/17 15:34 06/18/17 15:34 06/18/17 15:34 06/18/17 15:34 06/18/17 15:34 Intake & Output 06/17/17 06/18/17 06/19/17 06:59 06:59 06:59 Intake Total 540 891 Output Total 500 975 400 Balance 40 -84 -400 Weight 68.7 kg 65.4 kg General appearance: PRESENT: no acute distress, well-developed, well-nourished Head exam: PRESENT: atraumatic Eye exam: PRESENT: conjunctiva pink, PERRLA Mouth exam: PRESENT: moist Neck exam: PRESENT: full ROM Respiratory exam: PRESENT: clear to auscultation dennise, symmetrical, unlabored Cardiovascular exam: PRESENT: +S1, +S2 Pulses: PRESENT: normal radial pulses, normal dorsalis pedis pul Vascular exam: PRESENT: normal capillary refill GI/Abdominal exam: PRESENT: normal bowel sounds, soft. ABSENT: tenderness Rectal exam: PRESENT: deferred Extremities exam: PRESENT: full ROM, joint swelling - Worsening erythema and swelling to right knee Musculoskeletal exam: PRESENT: ambulatory, full ROM Neurological exam: PRESENT: alert, awake, oriented to person, oriented to place , oriented to time, oriented to situation Psychiatric exam: PRESENT: appropriate affect Skin exam: PRESENT: erythema, other - Superficial purulent bulla 2 right knee Results Laboratory Results: 06/18/17 05:06 06/18/17 05:06 06/18/17 06/18/17 06/18/17 05:06 05:06 09:32 WBC 15.7 H RBC 4.64 Hgb 13.0 L Hct 39.4 MCV 85 MCH 28.1 MCHC 33.1 RDW 13.0 Plt Count 290 Seg Neutrophils % 79.7 H Lymphocytes % 10.9 L Monocytes % 8.5 Eosinophils % 0.5 Basophils % 0.4 Absolute Neutrophils 12.5 H Absolute Lymphocytes 1.7 Absolute Monocytes 1.3 Absolute Eosinophils 0.1 Absolute Basophils 0.1 Sodium 140.3 Potassium 3.9 Chloride 101 Carbon Dioxide 28 Anion Gap 11 BUN 8 Creatinine 0.82 Est GFR ( Amer) > 60 Est GFR (Non-Af Amer) > 60 Glucose 99 Calcium 9.3 Phosphorus 4.3 Magnesium 2.0 Blood Type B POSITIVE Antibody Screen NEGATIVE 06/17/17 06/17/17 06/17/17 11:45 17:40 23:37 Troponin I < 0.012 < 0.012 < 0.012 Impressions: Knee X-Ray 06/16/17 10:44 IMPRESSION: 4 MM METALLIC FOREIGN OBJECT IN THE MEDIAL SOFT TISSUES. SOFT TISSUE SWELLING. NO SIGNIFICANT BONY FINDINGS. Extremity Ultrasound 06/18/17 00:00 IMPRESSION: Diffuse phlegmon in the subcutaneous tissues medial right knee. No well circumscribed abscess is identified at this time. No suprapatellar knee joint effusion No prepatellar bursa fluid collection Lower Extremity CT 06/18/17 00:00 IMPRESSION: 1. The CT examination adds little to the previously noted soft tissue findings detected on ultrasound earlier today. Please correlate with that report. 2. No bone pathology detected. Status: Imported from PACS Assessment & Plan - Diagnosis (1) Cellulitis Qualifiers: Site of cellulitis: extremity Site of cellulitis of extremity: lower extremity Laterality: right Qualified Code(s): L03.115 - Cellulitis of right lower limb Is this a current diagnosis for this admission?: Yes Plan: The patient is admitted with cellulitis to the right knee from a possible puncture injury approximately 3 days ago. Leukocytosis improved, WBC 15, but overall clinical picture is worse. Orthopedics has been asked to reevaluate the patient for possible surgical I&D of the right knee. Currently awaiting their recommendations. Imaging of the knee demonstrates a 4 mm metallic foreign body to the medial soft tissue. + Soft tissue swelling, but no significant bony findings. Blood cultures pending. Wound culture completed today. Admit to the medical floor. Empirically placed on IV vancomycin and Zosyn, will adjust his cultures result. P.o. oxycodone as needed for mild to moderate pain, IV fentanyl for severe pain. Antiemetics as needed. Tylenol as needed for pain or fever. Elevate the extremity. Consult PT and discharge planning to assess for needs. SQ heparin for DVT PPX. (2) Leukocytosis Qualifiers: Leukocytosis type: bandemia Qualified Code(s): D72.825 - Bandemia Is this a current diagnosis for this admission?: Yes Plan: Secondary to cellulitis. Additionally evaluated urinalysis which is negative for UTI. Blood, urine, and wound culture pending. Plan as above. (3) Knee pain Qualifiers: Chronicity: acute Laterality: right Qualified Code(s): M25.561 - Pain in right knee Is this a current diagnosis for this admission?: Yes Plan: Secondary to cellulitis. Worsening knee pain today. Oxycodone and Tylenol as needed for mild to moderate pain. IV fentanyl as needed for severe pain (4) Chest pain Qualifiers: Chest pain type: unspecified Qualified Code(s): R07.9 - Chest pain, unspecified Is this a current diagnosis for this admission?: Yes Plan: Resolved. Yesterday morning the patient began complaining of left-sided anterior wall chest pain. He states that his pain is nonradiating, and it is not reproducible with palpation. The patient denies SOB. The patient states that he was very anxious and stressed about potentially "losing his right leg." EKG demonstrated sinus tachycardia, no evidence of acute ischemia or infarction. Serial troponin<0.012, no longer trending Administered 1 mg Ativan IV for anxiety. This seems to have helped, no plan for further intervention at this time. (5) Tobacco dependency Is this a current diagnosis for this admission?: Yes Plan: Smoking cessation is encouraged. Nicotine replacement therapies have been offered. - Time Time Spent with patient: 15-24 minutes Medications reviewed and adjusted accordingly: Yes Anticipated discharge: Home Within: within 72 hours - Inpatient Certification Based on my medical assessment, after consideration of the patient's comorbidities, presenting symptoms, or acuity I expect that the services needed warrant INPATIENT care.: Yes I certify that my determination is in accordance with my understanding of Medicare's requirements for reasonable and necessary INPATIENT services [42 CFR 412.3e].: Yes Medical Necessity: Need For IV Fluids, Need for IV Antibiotics, Risk of Complication if Not Cared For in Hospital - Plan Summary Plan Summary: At this time, the plan is for the patient to be evaluated by surgery given his worsening clinical picture. The patient will remain n.p.o. in anticipation of possible surgical I&D of the right knee. Will initiate IV fluids to maintain proper hydration. Type and screen to be completed today. Appreciate orthopedic recommendations.
[2017-06-18 20:20] LABS: VANCOMYCIN,TROUGH 5.9 ug/mL (5.0-20.0)
[2017-06-19] MEDS: OXYCODONE-ACETAMINOPHEN 5-325 MG TABLET PO PRN ×5 (01:31→21:56)
[2017-06-19] MEDS: PIPERACILLIN SODIUM/TAZOBACTAM 3.375 GM in NORMAL SALINE 100 ML IV SCH ×2 (01:31→05:35)
[2017-06-19] MEDS: HEPARIN SOD (PORCINE) 5,000 UNIT/ML 1 ML SYRINGE SUBCUT SCH ×3 (05:35→21:50)
[2017-06-19 05:58] LABS: ABSOLUTE BASOPHILS # (AUTO) 0.1 10^3/uL (0.0-0.2); ABSOLUTE EOSINOPHILS # (AUTO) 0.1 10^3/uL (0.0-0.6); ABSOLUTE LYMPHOCYTES (AUTO) 1.5 10^3/uL (0.5-4.7); ABSOLUTE MONOCYTES (AUTO) 1.2 10^3/uL (0.1-1.4); ABSOLUTE NEUT (AUTO) 9.2 10^3/uL (1.7-8.2); BASOPHILS % (AUTO) 0.6 % (0-2); EOSINOPHILS % (AUTO) 1.1 % (0-6); HEMATOCRIT 36.8 % (37.9-51.0); HEMOGLOBIN 12.3 g/dL (13.5-17.0); LYMPHOCYTES % (AUTO) 12.5 % (13-45); MEAN CORPUSCULAR HEMOGLOBIN 28.3 pg (27.0-33.4); MEAN CORPUSCULAR HGB CONC 33.4 g/dL (32.0-36.0); MEAN CORPUSCULAR VOLUME 85 fl (80-97); PLATELET COUNT 287 10^3/uL (150-450); RED BLOOD COUNT 4.34 10^6/uL (4.35-5.55); RED CELL DISTRIBUTION WIDTH 13.3 % (11.5-14.0); SEGMENTED NEUTROPHILS % (AUTO) 75.8 % (42-78); TOTAL CELLS COUNTED % (AUTO) 100 %; WHITE BLOOD COUNT 12.2 10^3/uL (4.0-10.5)
[2017-06-19 06:15] LABS: ANION GAP 9 (5-19); BLOOD UREA NITROGEN 7 mg/dL (7-20); CALCIUM 8.9 mg/dL (8.4-10.2); CARBON DIOXIDE 29 mmol/L (22-30); CHLORIDE 104 mmol/L (98-107); GLUCOSE 85 mg/dL (75-110); POTASSIUM 4.4 mmol/L (3.6-5.0); SODIUM 142.2 mmol/L (137-145)
--- NOTE | 2017-06-19 06:56 | PDOC PROGRESS REPORT ---
Subjective Progress Note for:: 06/19/17 Reason For Visit: CELLULITIS 47-year-old [place] male with a right knee cellulitis. Overall improvement over the last day from a symptomatic standpoint as well as from a laboratory standpoint. Physical Exam Vital Signs: Temp Pulse Resp BP Pulse Ox 36.4 C 85 14 117/81 97 06/18/17 23:56 06/18/17 23:56 06/18/17 23:56 06/18/17 23:56 06/18/17 23:56 Intake & Output 06/17/17 06/18/17 06/19/17 06:59 06:59 06:59 Intake Total 784 126 8297 Output Total 411 871 4422 Balance 40 -84 450 Weight 68.7 kg 65.4 kg 63.6 kg General appearance: PRESENT: no acute distress Head exam: PRESENT: normocephalic Respiratory exam: PRESENT: unlabored Cardiovascular exam: PRESENT: RRR Musculoskeletal exam: PRESENT: other - Right knee continues to be erythematous, indurated, and tender. Patient feels that this been clinical improvement from yesterday. Neurological exam: PRESENT: alert, awake, oriented to person, oriented to place , oriented to time, oriented to situation. ABSENT: motor sensory deficit Psychiatric exam: PRESENT: appropriate affect, normal mood. ABSENT: homicidal ideation, suicidal ideation Skin exam: PRESENT: dry, intact, warm. ABSENT: cyanosis, rash Results Laboratory Results: 06/19/17 05:20 06/19/17 05:20 06/18/17 06/18/17 06/19/17 09:32 19:50 05:20 WBC 12.2 H RBC 4.34 L Hgb 12.3 L Hct 36.8 L MCV 85 MCH 28.3 MCHC 33.4 RDW 13.3 Plt Count 287 Seg Neutrophils % 75.8 Lymphocytes % 12.5 L Monocytes % 10.0 Eosinophils % 1.1 Basophils % 0.6 Absolute Neutrophils 9.2 H Absolute Lymphocytes 1.5 Absolute Monocytes 1.2 Absolute Eosinophils 0.1 Absolute Basophils 0.1 Sodium Potassium Chloride Carbon Dioxide Anion Gap BUN Creatinine 0.84 Est GFR ( Amer) > 60 Est GFR (Non-Af Amer) > 60 Glucose Calcium Blood Type B POSITIVE Antibody Screen NEGATIVE 06/19/17 05:20 WBC RBC Hgb Hct MCV MCH MCHC RDW Plt Count Seg Neutrophils % Lymphocytes % Monocytes % Eosinophils % Basophils % Absolute Neutrophils Absolute Lymphocytes Absolute Monocytes Absolute Eosinophils Absolute Basophils Sodium 142.2 Potassium 4.4 Chloride 104 Carbon Dioxide 29 Anion Gap 9 BUN 7 Creatinine 0.79 Est GFR ( Amer) > 60 Est GFR (Non-Af Amer) > 60 Glucose 85 Calcium 8.9 Blood Type Antibody Screen 06/17/17 06/17/17 06/17/17 11:45 17:40 23:37 Troponin I < 0.012 < 0.012 < 0.012 Impressions: Knee X-Ray 06/16/17 10:44 IMPRESSION: 4 MM METALLIC FOREIGN OBJECT IN THE MEDIAL SOFT TISSUES. SOFT TISSUE SWELLING. NO SIGNIFICANT BONY FINDINGS. Extremity Ultrasound 06/18/17 00:00 IMPRESSION: Diffuse phlegmon in the subcutaneous tissues medial right knee. No well circumscribed abscess is identified at this time. No suprapatellar knee joint effusion No prepatellar bursa fluid collection Lower Extremity CT 06/18/17 00:00 IMPRESSION: 1. The CT examination adds little to the previously noted soft tissue findings detected on ultrasound earlier today. Please correlate with that report. 2. No bone pathology detected. Status: Imported from PACS Assessment & Plan - Diagnosis (1) Cellulitis Qualifiers: Site of cellulitis: extremity Site of cellulitis of extremity: lower extremity Laterality: right Qualified Code(s): L03.115 - Cellulitis of right lower limb Is this a current diagnosis for this admission?: Yes Plan: Patient reports improvement from yesterday symptomatically. He continues to be on empiric antibiotic therapy. Cultures are growing gram-positive cocci in clusters. Sensitivities are pending. White count is dropped to 12,000. I recommend that we continue with empiric antibiotics and tailor these when sensitivities are available. At this point there does not appear to be any indication for surgical intervention. We will continue on with course of observation. - Time Time Spent with patient: 15-24 minutes Anticipated discharge: Home with Homehealth Within: Other
[2017-06-19] MEDS: VANCOMYCIN HCL 1,250 MG in DEXTROSE 5%-WATER 250 ML IV SCH ×3 (07:49→23:12)
[2017-06-19] MEDS: FAMOTIDINE 20 MG TABLET PO SCH ×2 (09:23→21:50)
[2017-06-19] MEDS ORDERED: VANCOMYCIN HCL 1,250 MG in DEXTROSE 5%-WATER 250 ML IV SCH (16:00)
--- NOTE | 2017-06-19 16:45 | PDOC PROGRESS REPORT ---
Subjective Progress Note for:: 06/19/17 Subjective:: CHEMO WATSON is a 47 year old male with a PMH of tobacco abuse . Presented to the emergency department 06/16/2017 with complaints of right knee pain, erythema, edema present for approximately 3 days. Imaging of the knee demonstrates a 4 mm metallic foreign body to the superficial tissue. Orthopedics was consulted by ER physician and have ruled out septic arthritis, but concern for underlying abscess. Patient is empirically on vancomycin and Zosyn. The patient was seen this morning on rounds, he is resting in bed on room air. His pain in the right knee has greatly improved today. Clinically, the margins of erythema have greatly decreased and superficial purulent bulla on the anterior aspect of the right knee has also decreased in size. Dr. Mccann of orthopedics evaluated the patient this morning, no need for surgery at this time. Plan to continue with IV antibiotics. Wound culture positive for MRSA Reason For Visit: CELLULITIS Physical Exam Vital Signs: Temp Pulse Resp BP Pulse Ox 98.4 F 94 16 121/90 H 98 06/19/17 11:45 06/19/17 11:45 06/19/17 11:45 06/19/17 11:45 06/19/17 11:45 Intake & Output 06/18/17 06/19/17 06/20/17 06:59 06:59 06:59 Intake Total 891 1672 737 Output Total 975 1222 500 Balance -84 450 237 Weight 65.4 kg 63.6 kg General appearance: PRESENT: no acute distress Head exam: PRESENT: atraumatic Eye exam: PRESENT: conjunctiva pink, PERRLA Mouth exam: PRESENT: moist Neck exam: PRESENT: full ROM Respiratory exam: PRESENT: clear to auscultation dennise, symmetrical, unlabored Cardiovascular exam: PRESENT: RRR, +S1, +S2 Pulses: PRESENT: normal radial pulses, normal dorsalis pedis pul Vascular exam: PRESENT: normal capillary refill GI/Abdominal exam: PRESENT: normal bowel sounds, soft. ABSENT: tenderness Rectal exam: PRESENT: deferred Extremities exam: PRESENT: full ROM, joint swelling - Right knee, tenderness - TTP right knee Musculoskeletal exam: PRESENT: ambulatory, full ROM Neurological exam: PRESENT: alert, awake, oriented to person, oriented to place , oriented to time, oriented to situation Psychiatric exam: PRESENT: appropriate affect Results Laboratory Results: 06/19/17 05:20 06/19/17 05:20 06/18/17 06/19/17 06/19/17 19:50 05:20 05:20 WBC 12.2 H RBC 4.34 L Hgb 12.3 L Hct 36.8 L MCV 85 MCH 28.3 MCHC 33.4 RDW 13.3 Plt Count 287 Seg Neutrophils % 75.8 Lymphocytes % 12.5 L Monocytes % 10.0 Eosinophils % 1.1 Basophils % 0.6 Absolute Neutrophils 9.2 H Absolute Lymphocytes 1.5 Absolute Monocytes 1.2 Absolute Eosinophils 0.1 Absolute Basophils 0.1 Sodium 142.2 Potassium 4.4 Chloride 104 Carbon Dioxide 29 Anion Gap 9 BUN 7 Creatinine 0.84 0.79 Est GFR ( Amer) > 60 > 60 Est GFR (Non-Af Amer) > 60 > 60 Glucose 85 Calcium 8.9 06/17/17 10:30 Knee - Right Gram Stain - Final 06/17/17 10:30 Knee - Right Wound Culture - Final Mrsa (Meth Resis Staph Aureus) 06/17/17 06/17/17 06/17/17 11:45 17:40 23:37 Troponin I < 0.012 < 0.012 < 0.012 Impressions: Knee X-Ray 06/16/17 10:44 IMPRESSION: 4 MM METALLIC FOREIGN OBJECT IN THE MEDIAL SOFT TISSUES. SOFT TISSUE SWELLING. NO SIGNIFICANT BONY FINDINGS. Extremity Ultrasound 06/18/17 00:00 IMPRESSION: Diffuse phlegmon in the subcutaneous tissues medial right knee. No well circumscribed abscess is identified at this time. No suprapatellar knee joint effusion No prepatellar bursa fluid collection Lower Extremity CT 06/18/17 00:00 IMPRESSION: 1. The CT examination adds little to the previously noted soft tissue findings detected on ultrasound earlier today. Please correlate with that report. 2. No bone pathology detected. Status: Imported from PACS Assessment & Plan - Diagnosis (1) Cellulitis Qualifiers: Site of cellulitis: extremity Site of cellulitis of extremity: lower extremity Laterality: right Qualified Code(s): L03.115 - Cellulitis of right lower limb Is this a current diagnosis for this admission?: Yes Plan: The patient is admitted with cellulitis to the right knee from a possible puncture injury approximately 3 days ago. Leukocytosis improved, WBC 12, and overall clinical picture is improving. Orthopedics has reevaluated the patient, no plan for surgery at this time. Imaging of the knee demonstrates a 4 mm metallic foreign body to the medial soft tissue. + Soft tissue swelling, but no significant bony findings. Blood cultures no growth for 24 hours. WOUND CULTURE POSITIVE FOR MRSA. Admit to the medical floor. Continue IV vancomycin, discontinue Zosyn P.o. oxycodone as needed for mild to moderate pain, IV fentanyl for severe pain. Antiemetics as needed. Tylenol as needed for pain or fever. Elevate the extremity. Consult PT and discharge planning to assess for needs. SQ heparin for DVT PPX. (2) Leukocytosis Qualifiers: Leukocytosis type: bandemia Qualified Code(s): D72.825 - Bandemia Is this a current diagnosis for this admission?: Yes Plan: Improving. Secondary to cellulitis. Additionally evaluated urinalysis which is negative for UTI. Blood, urine, and wound culture pending. Plan as above. (3) Knee pain Qualifiers: Chronicity: acute Laterality: right Qualified Code(s): M25.561 - Pain in right knee Is this a current diagnosis for this admission?: Yes Plan: Secondary to cellulitis. Worsening knee pain today. Oxycodone and Tylenol as needed for mild to moderate pain. IV fentanyl as needed for severe pain (4) Tobacco dependency Is this a current diagnosis for this admission?: Yes Plan: Smoking cessation is encouraged. Nicotine replacement therapies have been offered. - Time Time Spent with patient: 15-24 minutes Medications reviewed and adjusted accordingly: Yes Anticipated discharge: Home Within: within 24 hours - Inpatient Certification Based on my medical assessment, after consideration of the patient's comorbidities, presenting symptoms, or acuity I expect that the services needed warrant INPATIENT care.: Yes I certify that my determination is in accordance with my understanding of Medicare's requirements for reasonable and necessary INPATIENT services [42 CFR 412.3e].: Yes Medical Necessity: Need for IV Antibiotics - Plan Summary Plan Summary: Ultimately, the plan is to discharge the patient home on oral antibiotics.
[2017-06-20] MEDS: HEPARIN SOD (PORCINE) 5,000 UNIT/ML 1 ML SYRINGE SUBCUT SCH (06:24)
[2017-06-20] MEDS: VANCOMYCIN HCL 1,250 MG in DEXTROSE 5%-WATER 250 ML IV SCH (08:11)
[2017-06-20] MEDS: OXYCODONE-ACETAMINOPHEN 5-325 MG TABLET PO PRN (08:18)
[2017-06-20] MEDS: FAMOTIDINE 20 MG TABLET PO SCH (10:16)
[2017-06-20 14:19] VITALS: BP 128/73
--- NOTE | 2017-06-20 14:38 | PDOC PROGRESS REPORT ---
Subjective Progress Note for:: 06/20/17 Subjective:: When I entered the patient's room this afternoon he was not present. I found the patient standing at the nursing station collecting papers for his discharge. Patient reports he had been discharged by hospitalist service and it was indicated to him that he could leave the hospital around 2:00 PM. Therefore he was attempting to leave. Patient was informed to return to his room until discharge paperwork as well as the orders are placed. He agreed and returned to his room. Patient reports his pain is significantly improved and he can now touch and perform active range of motion of the knee without pain. He is very pleased with his progress and desires to be discharged. Denies tingling or numbness presently. Reason For Visit: CELLULITIS Physical Exam Vital Signs: Temp Pulse Resp BP Pulse Ox 37.1 C 72 16 128/73 H 99 06/20/17 14:17 06/20/17 14:17 06/20/17 14:17 06/20/17 14:17 06/20/17 14:17 Intake & Output 06/19/17 06/20/17 06/21/17 06:59 06:59 06:59 Intake Total 1672 1359 Output Total 1222 800 Balance 450 559 Weight 63.6 kg 66.7 kg General appearance: PRESENT: no acute distress, well-developed, well-nourished Additional comments: Patient sitting on the edge of hospital bed fully clothed with shoes on. Focal area of edema and erythema is much decreased from previous demarcated margins of right knee. He is nontender to palpation. There is a gauze dressing placed over anterior aspect of right knee. It is placed over previous location of superficial bulla. He exhibits full strength and range of motion of the right knee in terms of flexion extension internal/external rotation. He notes no pain on initiation of motion or with weightbearing and ambulation. Leg lengths equal distal neurovascular exam intact. Musculoskeletal exam: PRESENT: ambulatory Additional comments: Patient is ambulatory and notes no pain with weightbearing or ambulation. Results Laboratory Results: 06/19/17 05:20 06/19/17 05:20 06/17/17 10:30 Knee - Right Gram Stain - Final 06/17/17 10:30 Knee - Right Wound Culture - Final Mrsa (Meth Resis Staph Aureus) 06/17/17 06/17/17 06/17/17 11:45 17:40 23:37 Troponin I < 0.012 < 0.012 < 0.012 Impressions: Knee X-Ray 06/16/17 10:44 IMPRESSION: 4 MM METALLIC FOREIGN OBJECT IN THE MEDIAL SOFT TISSUES. SOFT TISSUE SWELLING. NO SIGNIFICANT BONY FINDINGS. Extremity Ultrasound 06/18/17 00:00 IMPRESSION: Diffuse phlegmon in the subcutaneous tissues medial right knee. No well circumscribed abscess is identified at this time. No suprapatellar knee joint effusion No prepatellar bursa fluid collection Lower Extremity CT 06/18/17 00:00 IMPRESSION: 1. The CT examination adds little to the previously noted soft tissue findings detected on ultrasound earlier today. Please correlate with that report. 2. No bone pathology detected. Assessment & Plan - Diagnosis (1) Cellulitis Qualifiers: Site of cellulitis: extremity Site of cellulitis of extremity: lower extremity Laterality: right Qualified Code(s): L03.115 - Cellulitis of right lower limb Is this a current diagnosis for this admission?: Yes - Plan Summary Plan Summary: 47-year-old male with cellulitis of the right knee. Patient has clinically improved as have laboratory values. He is no longer tender to palpation and can perform full range of motion without pain in the right knee as well as ambulate. Leukocytosis is resolving with most recent value 12.2. Wound cultures are positive for MRSA and IV antibiotic therapy had been switched from Zosyn to vancomycin. At this time patient is under the impression that he has been discharged by hospitalist service. Patient was informed that from an orthopedic standpoint he does not require surgery and is stable for discharge. He was advised, however to continue antibiotic therapy prescribed by hospitalist service. Patient voiced understanding and is in agreement with this plan. He will follow-up with his primary care provider once he has completed oral antibiotic therapy. We would like to thank you for the consult and continued care of this patient.
== END 2017-06-20 14:35 | disposition home or self-care (01) | DRG 603 ==
LOC: ER 09:42 → EH 12:56 → 4N 16:13
PROVIDERS: ADMIT Internal Medicine; ATTEND Internal Medicine
DX: L03.115 Cellulitis of right lower limb (principal); S81.041A Puncture wound with foreign body, right knee, initial encounter; B95.62 Methicillin resistant Staphylococcus aureus infection as the cause of diseases classified elsewhere; R07.9 Chest pain, unspecified; D72.825 Bandemia; M25.561 Pain in right knee; X58.XXXA Exposure to other specified factors, initial encounter; F17.210 Nicotine dependence, cigarettes, uncomplicated; Y93.9 Activity, unspecified; Y92.9 Unspecified place or not applicable
CPT/HCPCS: 36415; 76881; 80048; 80053; 80202; 81001; 82565; 82803; 83605; 83735; 84100; 84484; 85025; 85610; 85652; 86140; 86850; 86900; 86901; 87040; 87070; 87077; 87086; 87186; 87205; 93005; 93010; 96365; 96375; 99285; J1644; J2060; J2270; J2405; J2543; J2765; J3010; J3370; J3490; J7060

== ENCOUNTER 2018-12-06 10:18 | Emergency (ER) | payer SELFPAY ==
[2018-12-06 10:54] LABS: APPEARANCE,URINE CLOUDY; BILIRUBIN,URINE SMALL (NEGATIVE); COLOR,URINE AMBER; GLUCOSE, URINE NEGATIVE (NEGATIVE); KETONES,URINE TRACE mg/dL (NEGATIVE); LEUKOCYTE ESTERASE,URINE SMALL (NEGATIVE); NITRITE,URINE NEGATIVE (NEGATIVE); PROTEIN,URINE 30 mg/dL (NEGATIVE); URINE SPECIFIC GRAVITY 1.024
[2018-12-06] MEDS ORDERED: KETOROLAC TROMETHAMINE 60 MG/2 ML SDV IM ONE (11:22)
--- NOTE | 2018-12-06 12:19 | ER Document Report ---
Entered by LONDON NEWELL SCRIBE 12/06/18 1122 Acting as scribe for:KETTY VARGAS MD ED GI/ - General Chief Complaint: Testicular Swelling Stated Complaint: FALL/GROIN PAIN Time Seen by Provider: 12/06/18 11:15 Mode of Arrival: Ambulatory Information source: Patient Notes: Patient is a 48-year-old male who presents to the emergency department today with complaints of left testicle swelling and pain. Patient states yesterday his dog jumped up on to him striking his left testicle. Patient states the dog is quite large, over 100 pounds. Patient has had pain and swelling since this occurred. TRAVEL OUTSIDE OF THE [place] IN LAST 30 DAYS: No - Related Data Allergies/Adverse Reactions: No Known Allergies Allergy (Verified 12/06/18 10:33) Past Medical History - General Information source: Patient, [facility] Records - Social History Smoking Status: Current Every Day Smoker Cigarette use (# per day): Yes - 1/2 ppd Chew tobacco use (# tins/day): No Smoking Education Provided: No Frequency of alcohol use: None Drug Abuse: None Occupation: manager research and development Family History: Reviewed & Not Pertinent, Arthritis, CAD, CVA, DM, Hyperlipidemia, Hypertension Patient has suicidal ideation: No Patient has homicidal ideation: No Musculoskeletal Medical History: Reports Hx Arthritis, Reports Hx Musculoskeletal Trauma Psychiatric Medical History: Reports: Hx Depression Traumatic Medical History: Reports: Hx Fractures - clavicle Past Surgical History: Reports: Hx Inguinal Hernia - Left sided, repaired twice - Immunizations Immunizations up to date: No Hx Diphtheria, Pertussis, Tetanus Vaccination: Yes Review of Systems - Review of Systems Constitutional: No symptoms reported EENT: No symptoms reported Cardiovascular: No symptoms reported Respiratory: No symptoms reported Gastrointestinal: No symptoms reported Genitourinary: No symptoms reported Male Genitourinary: See HPI, Testicular pain Musculoskeletal: No symptoms reported Skin: No symptoms reported Hematologic/Lymphatic: No symptoms reported Neurological/Psychological: No symptoms reported -: Yes All other systems reviewed and negative Physical Exam - Notes Notes: Physical Exam: General: Alert, appears well. HEENT: Normocephalic. Atraumatic. PERRL. Extraocular movements intact. Oropharynx clear. Neck: Supple. Non-tender. Respiratory: No respiratory distress. Clear and equal breath sounds bilaterally. Cardiovascular: Regular rate and rhythm. Abdominal: Normal Inspection. Non-tender. No distension. Normal Bowel Sounds. Male genitourinary: Left testicle is grossly swollen with associated scrotal wall erythema. The backside of the left testicle is exquisitely tender with palpation over the epididymis. Back: No gross abnormalities. Extremities: Moves all four extremities. Upper extremities: Normal inspection. Normal ROM. Lower extremities: Normal inspection. No edema. Normal ROM. Neurological: Normal cognition. AAOx4. Normal speech. Psychological: Normal affect. Normal Mood. Skin: Warm. Dry. Normal color. Course - Laboratory Result Diagrams: 12/06/18 12:00 12/06/18 12:00 Laboratory results interpreted by me: 12/06/18 12/06/18 10:36 12:00 WBC 12.4 H Lymph % (Auto) 8.3 L Absolute Neuts (auto) 10.5 H Seg Neutrophils % 85.1 H Urine Protein 30 H Urine Ketones TRACE H Urine Bilirubin SMALL H Urine Urobilinogen 4.0 H Ur Leukocyte Esterase SMALL H Urine Ascorbic Acid 40 H - Diagnostic Test Radiology reviewed: Image reviewed, Reports reviewed - Ultrasound shows a left hydrocele with probable chronic epididymitis. Discharge - Discharge Clinical Impression: Hydrocele, left, Epididymitis, left Condition: Stable Disposition: HOME, SELF-CARE Additional Instructions: Hydrocele You have been diagnosed as having a hydrocele. The sac that holds the testicles is called the scrotum. A hydrocele is usually a painless collection of fluid in the membrane that covers the testicle(s). This may be present at or develop later on in life. The cause is usually unknown. In infants a hydrocele can be due to a miscommunication of the fluid surrounding the testes. In adults a hydrocele may form due to injury or inflammation of surrounding structures. Most hydroceles require no treatment, and usually resolve on their own. However, sometimes surgical intervention is recommended for recurrent, or for unusually large hydroceles. The surgery to fix a hydrocele is a minor procedure and usually takes about 1 and 1/2 hours. Epididymitis You have epididymitis. This is an inflammation of the organ just behind the testicle, called the epididymis. It can be due to infection in the bladder or prostate. Many cases are simply inflammation and are not caused by germs. Epididymitis often develops after heavy lifting or vigorous exercise. Antibiotics and antiinflammatory medication are often prescribed. Elevation of the scrotum with a jock-strap or tight briefs will help with the pain. Pain medication may be required. Either cold packs or warm sitz baths can help with the pain -- ask your doctor which he recommends for your case. It may take 10 to 14 days until the pain is gone. Avoid heavy lifting during this time. Call the doctor or go to the hospital if you develop fever, increasing pain, or severe swelling, or if you fail to improve as expected. Take the medications as prescribed. Use good scrotal support. Avoid any heavy lifting or straining. Avoid any prolonged standing or walking. Drink plenty of fluids. Soaking in warm water may help the pain. Follow-up with a local urologist for evaluation of your hydrocele and your epididymitis if not improving. RETURN TO THE EMERGENCY ROOM IF ANY NEW OR WORSENING SYMPTOMS. Prescriptions: Doxycycline Hyclate 100 mg PO BID #20 tablet.dr Gutierrezroxen [Naprosyn 250 mg Tablet] 500 mg PO DAILY #30 tablet Hydrocodone/Acetaminophen [[place] 5-325 mg Tablet] 1 tab PO Q4 PRN #12 tablet PRN Reason: Forms: Return to Work Referrals: [facility] [Provider Group] - Follow up as needed Scribe Attestation: 12/06/18 11:46 I personally performed the services described in the documentation, reviewed and edited the documentation which was dictated to the scribe in my presence, and it accurately records my words and actions. I personally performed the services described in the documentation, reviewed and edited the documentation which was dictated to the scribe in my presence, and it accurately records my words and actions.
[2018-12-06 12:23] LABS: ABSOLUTE MONOCYTES (AUTO) 0.7 10^3/uL (0.1-1.4); ABSOLUTE NEUT (AUTO) 10.5 10^3/uL (1.7-8.2); BASOPHILS % (AUTO) 0.3 % (0-2); EOSINOPHILS % (AUTO) 0.4 % (0-6); HEMATOCRIT 41.1 % (37.9-51.0); HEMOGLOBIN 13.6 g/dL (13.5-17.0); LYMPHOCYTES % (AUTO) 8.3 % (13-45); MEAN CORPUSCULAR HEMOGLOBIN 28.6 pg (27.0-33.4); MEAN CORPUSCULAR HGB CONC 33.1 g/dL (32.0-36.0); MEAN CORPUSCULAR VOLUME 86 fl (80-97); MONOCYTES % (AUTO) 5.9 % (3-13); PLATELET COUNT 426 10^3/uL (150-450); RED BLOOD COUNT 4.77 10^6/uL (4.35-5.55); RED CELL DISTRIBUTION WIDTH 13.4 % (11.5-14.0); SEGMENTED NEUTROPHILS % (AUTO) 85.1 % (42-78); TOTAL CELLS COUNTED % (AUTO) 100 %; WHITE BLOOD COUNT 12.4 10^3/uL (4.0-10.5)
[2018-12-06 12:43] LABS: ALBUMIN 4.2 g/dL (3.5-5.0); ALKALINE PHOSPHATASE 95 U/L (38-126); ANION GAP 9 (5-19); ASPARTATE AMINO TRANSFERASE 21 U/L (17-59); BILIRUBIN,DIRECT 0.1 mg/dL (0.0-0.4); BILIRUBIN,TOTAL 0.5 mg/dL (0.2-1.3); BLOOD UREA NITROGEN 9 mg/dL (7-20); CARBON DIOXIDE 30 mmol/L (22-30); CHLORIDE 99 mmol/L (98-107); GLUCOSE 91 mg/dL (75-110); POTASSIUM 4.8 mmol/L (3.6-5.0); TOTAL PROTEIN 7.5 g/dL (6.3-8.2)
--- NOTE | 2018-12-06 13:35 | RADIOLOGY REPORT (SQ) ---
EXAM DESCRIPTION: U/S SCROTUM W/DOPPLER COMPLETED DATE/TIME: 12/06/2018 1:07 pm REASON FOR STUDY: Left testicle pain and swelling COMPARISON: None. TECHNIQUE: Static and realtime whitley scale imaging of the scrotum and testes. Selected color Doppler and spectral images recorded to document blood flow. LIMITATIONS: None. FINDINGS: RIGHT: TESTICLE: Normal size. Normal echotexture. Normal blood flow. No mass. EPIDIDYMIS: Normal. HYDROCELE OR VARICOCELE: No. HERNIA OR EXTRA-TESTICULAR MASS: No. OTHER: No other significant finding. LEFT: TESTICLE: Normal size. Normal echotexture. Normal blood flow. No mass. EPIDIDYMIS: Diffuse heterogenous enlargement. HYDROCELE OR VARICOCELE: Hydrocele containing septations and debris. HERNIA OR EXTRA-TESTICULAR MASS: No. OTHER: No other significant finding. IMPRESSION: 1. LEFT-SIDED HYDROCELE CONTAINING SEPTATIONS AND DEBRIS. 2. DIFFUSE HETEROGENOUS ENLARGEMENT OF THE EPIDIDYMIS. NO SIGNIFICANT HYPERVASCULARITY. THIS COULD BE DUE TO CHRONIC EPIDIDYMITIS. 3. NORMAL TESTICULAR ULTRASOUND. NO EVIDENCE OF TESTICULAR MASS OR TORSION. TECHNICAL DOCUMENTATION: JOB ID: [id number]- All Rights Reserved Reading location - IP/workstation name: [email or web address]
[2018-12-06] MEDS ORDERED: LIDOCAINE 1% INJ-PF (10 MG/ML) 30 ML SDV INJ ONE (13:51)
[2018-12-06] MEDS ORDERED: DOXYCYCLINE HYCLATE 100 MG TABLET PO ONE (13:51)
[2018-12-06] MEDS ORDERED: CEFTRIAXONE INJ 1000 MG VIAL IM ONE (13:51)
[2018-12-06 14:47] LABS: CHLAM PCR NOT DETECTED (NOT DETECT)
[2018-12-06 15:23] VITALS: BP 108/77
== END 2018-12-06 15:45 | disposition home or self-care (01) ==
LOC: ER 10:18
DX: N43.3 Hydrocele, unspecified (principal); N45.1 Epididymitis; N50.89 Other specified disorders of the male genital organs; F17.210 Nicotine dependence, cigarettes, uncomplicated
CPT/HCPCS: 36415; 87086; 85025; 87088; 80053; 81001; 87491; 87591; 76870; 93976; J1885; J3490; J0696; 87186; 96372; 99284

== ENCOUNTER 2019-01-05 11:21 | Emergency (ER) | payer SELFPAY ==
--- NOTE | 2019-01-05 11:33 | ER Document Report ---
ED Medical Screen (RME) - General Chief Complaint: Testicular Pain Stated Complaint: TESTICULAR PAIN Time Seen by Provider: 01/05/19 11:29 Mode of Arrival: Ambulatory Information source: Patient Notes: 28-year-old male presents to ED for complaint of left testicular pain since yesterday morning. He states that the left scrotum is larger than the right. He states no pain with urination and denies any blood in his urine. Patient had already gone to the bathroom before I examined him. He will be ordered a urine and a scrotal ultrasound states he smokes a pack a day alcohol no drugs. Any previous history of testicle pain or swelling states he is not on any medications I have greeted and performed a rapid initial assessment of this patient. A comprehensive ED assessment and evaluation of the patient, analysis of test results and completion of medical decision making process will be conducted by an additional ED providers. TRAVEL OUTSIDE OF THE [place] IN LAST 30 DAYS: No - Related Data Allergies/Adverse Reactions: No Known Allergies Allergy (Verified 12/06/18 10:33) Past Medical History Renal/ Medical History: Denies: Hx Peritoneal Dialysis Musculoskeltal Medical History: Reports Hx Arthritis, Reports Hx Musculoskeletal Trauma Psychiatric Medical History: Reports: Hx Depression Traumatic Medical History: Reports: Hx Fractures - clavicle Past Surgical History: Reports: Hx Abdominal Surgery - hernia x2, Hx Herniorrhaphy, Hx Inguinal Hernia - Left sided, repaired twice - Immunizations Immunizations up to date: No Hx Diphtheria, Pertussis, Tetanus Vaccination: Yes Physical Exam - Vital signs Vitals: Temp Pulse Resp BP Pulse Ox 97.8 F 73 18 140/94 H 100 01/05/19 11:24 01/05/19 11:24 01/05/19 11:24 01/05/19 11:24 01/05/19 11:24 Course - Vital Signs Vital signs: Temp Pulse Resp BP Pulse Ox 97.8 F 73 18 140/94 H 100 01/05/19 11:24 01/05/19 11:24 01/05/19 11:24 01/05/19 11:24 01/05/19 11:24
--- NOTE | 2019-01-05 12:10 | ER Document Report ---
ED GI/ - General Chief Complaint: Testicular Pain Stated Complaint: TESTICULAR PAIN Time Seen by Provider: 01/05/19 11:29 Primary Care Provider: [facility] [Primary Care Provider] - Follow up as needed Mode of Arrival: Ambulatory Information source: Patient TRAVEL OUTSIDE OF THE [place] IN LAST 30 DAYS: No - HPI Patient complains to provider of: Testicular pain Onset: Other - Pt. with L testicular pain for the past 1-2 days. He was seen in the ED recently for the same - Related Data Allergies/Adverse Reactions: No Known Allergies Allergy (Verified 01/05/19 11:30) Past Medical History - General Information source: Patient - Social History Smoking Status: Current Every Day Smoker Chew tobacco use (# tins/day): No Drug Abuse: None Family History: Reviewed & Not Pertinent, Arthritis, CAD, CVA, DM, Hyperlipidemia, Hypertension Patient has suicidal ideation: No Patient has homicidal ideation: No Renal/ Medical History: Denies: Hx Peritoneal Dialysis Musculoskeletal Medical History: Reports Hx Arthritis, Reports Hx Musculoskeletal Trauma Psychiatric Medical History: Reports: Hx Depression Traumatic Medical History: Reports: Hx Fractures - clavicle Past Surgical History: Reports: Hx Abdominal Surgery - hernia x2, Hx Herniorrhaphy, Hx Inguinal Hernia - Left sided, repaired twice - Immunizations Immunizations up to date: No Hx Diphtheria, Pertussis, Tetanus Vaccination: Yes Physical Exam - Vital signs Vitals: Temp Pulse Resp BP Pulse Ox 97.8 F 73 18 140/94 H 100 01/05/19 11:24 01/05/19 11:24 01/05/19 11:24 01/05/19 11:24 01/05/19 11:24 Course - Re-evaluation Re-evalutation: 01/05/19 15:42 Pt. feels somewhat better after pain meds in the ED -- I have spoken to Dr. Panda at [facility] and he has reviewed the scans and other labs. He feels the pt. can be dischanrged on Bactrim and pain meds and he will see in the office later this week. - Vital Signs Vital signs: Temp Pulse Resp BP Pulse Ox 97.8 F 73 18 140/94 H 100 01/05/19 11:24 01/05/19 11:24 01/05/19 11:24 01/05/19 11:24 01/05/19 11:24 - Laboratory Result Diagrams: 01/05/19 11:45 Laboratory results interpreted by me: 01/05/19 01/05/19 11:45 11:45 WBC 17.1 H RDW 14.2 H Lymph % (Auto) 8.7 L Absolute Neuts (auto) 14.5 H Seg Neutrophils % 84.7 H Urine Protein 30 H Urine Nitrite (Reflex) POSITIVE H Leukocyte Esterase Rfl LARGE H - Diagnostic Test Radiology reviewed: Reports reviewed - L epididymo-orchitis and L hydrocele - [facility] Time consulted: 15:47 Consulted provider: follow-up in office Discharge - Discharge Clinical Impression: Epididymo-orchitis without abscess Hydrocele Qualifiers: Hydrocele type: unspecified Qualified Code(s): N43.3 - Hydrocele, unspecified Condition: Stable Disposition: HOME, SELF-CARE Instructions: Anti-Inflammatory Medication ([facility]), Epididymitis ([facility]) Additional Instructions: rest, take medications as prescribed, return if worse Prescriptions: Sulfamethoxazole/Trimethoprim [Bactrim Ds Tablet] 1 each PO BID #20 tablet Etodolac [Lodine] 400 mg PO BID #14 tablet Oxycodone HCl/Acetaminophen [Percocet 5-325 mg Tablet] 1 tab PO ASDIR PRN #15 tab PRN Reason: Referrals: [facility] [Primary Care Provider] - Follow up as needed RICHARDSON PANDA MD [NO LOCAL MD] - Follow up as needed
[2019-01-05 12:13] LABS: AMORPHOUS SEDIMENT,URINE TRACE /HPF; APPEARANCE,URINE CLOUDY; BILIRUBIN,URINE NEGATIVE (NEGATIVE); GLUCOSE, URINE NEGATIVE (NEGATIVE); KETONES,URINE NEGATIVE (NEGATIVE); PROTEIN,URINE 30 mg/dL (NEGATIVE); URINE SPECIFIC GRAVITY 1.023; UROBILINOGEN,URINE NEGATIVE mg/dL (<2.0)
[2019-01-05 12:14] LABS: COLOR,URINE YELLOW
[2019-01-05 12:16] LABS: ABSOLUTE EOSINOPHILS # (AUTO) 0.1 10^3/uL (0.0-0.6); ABSOLUTE LYMPHOCYTES (AUTO) 1.5 10^3/uL (0.5-4.7); ABSOLUTE NEUT (AUTO) 14.5 10^3/uL (1.7-8.2); BASOPHILS % (AUTO) 0.2 % (0-2); EOSINOPHILS % (AUTO) 0.7 % (0-6); HEMOGLOBIN 14.9 g/dL (13.5-17.0); LYMPHOCYTES % (AUTO) 8.7 % (13-45); MEAN CORPUSCULAR HEMOGLOBIN 28.8 pg (27.0-33.4); MEAN CORPUSCULAR HGB CONC 33.2 g/dL (32.0-36.0); MEAN CORPUSCULAR VOLUME 87 fl (80-97); MONOCYTES % (AUTO) 5.7 % (3-13); PLATELET COUNT 302 10^3/uL (150-450); RED BLOOD COUNT 5.18 10^6/uL (4.35-5.55); RED CELL DISTRIBUTION WIDTH 14.2 % (11.5-14.0); SEGMENTED NEUTROPHILS % (AUTO) 84.7 % (42-78); TOTAL CELLS COUNTED % (AUTO) 100 %; WHITE BLOOD COUNT 17.1 10^3/uL (4.0-10.5)
[2019-01-05] MEDS ORDERED: TRAMADOL HCL 50 MG TABLET PO ONE (12:30)
[2019-01-05] MEDS ORDERED: HYDROCODONE/ACETAMINOPHEN 5-325 MG TABLET PO ONE (13:35)
[2019-01-05 13:43] LABS: CHLAM PCR NOT DETECTED (NOT DETECT)
--- NOTE | 2019-01-05 14:40 | RADIOLOGY REPORT (SQ) ---
EXAM DESCRIPTION: U/S SCROTUM W/DOPPLER COMPLETED DATE/TIME: 01/05/2019 1:26 pm REASON FOR STUDY: Left scrotal pain and swelling COMPARISON: 12/06/2018 TECHNIQUE: Static and realtime whitley scale imaging of the scrotum and testes. Selected color Doppler and spectral images recorded to document blood flow. LIMITATIONS: None. FINDINGS: RIGHT: TESTICLE: The right testicle measures 3.5 x 2.8 x 1.6 cm, normal size. Normal echotexture. Normal b lood flow. No mass. EPIDIDYMIS: The head of the epididymis measures 1.0 x 0.8 x 1.0 cm. Normal. HYDROCELE OR VARICOCELE: No. HERNIA OR EXTRA-TESTICULAR MASS: No. OTHER: No other significant finding. LEFT: TESTICLE: The left testicle measures 4.3 x 3.0 x 2.5 cm. Normal size. Normal echotexture. Increase d vascularity is suggested. No mass. EPIDIDYMIS: The head of the epididymis measures 1.4 x 2.5 x 2.0 cm and is prominent in size. Diffus e heterogenous echotexture. These are stable finding since the prior examination. New finding of in creased vascularity. HYDROCELE OR VARICOCELE: As on the previous examination, a complex hydrocele contains septations and debris. HERNIA OR EXTRA-TESTICULAR MASS: No. OTHER: Diffuse thickening of the scrotal skin on the left, probably on an inflammatory basis. IMPRESSION: 1. Increased vascularity is demonstrated within the left testicle and the epididymis, n ew finding since the prior study dated 12/06/2018. Diffuse left scrotal skin thickening and enlargeme nt of the left epididymis. Considerations for these findings include left epididymo--orchitis. 2. Complex appearing left hydrocele with septations and debris, unchanged from the prior study. 3. Normal testicular ultrasound on the right. COMMENT: 1. The results of this examination were discussed with emergency department washer assembler on at 14:29 hours. TECHNICAL DOCUMENTATION: JOB ID: [id number]- All Rights Reserved Reading location - IP/workstation name: [email or web address]
[2019-01-05] MEDS ORDERED: CEFTRIAXONE INJ 500 MG VIAL IM ONE (15:32)
[2019-01-05] MEDS ORDERED: LIDOCAINE 1% INJ-PF (10 MG/ML) 30 ML SDV NEB ONE (15:32)
[2019-01-05] MEDS ORDERED: LIDOCAINE 1% INJ-PF (10 MG/ML) 30 ML SDV IM ONE (15:36)
[2019-01-05 16:04] VITALS: BP 130/65
== END 2019-01-05 16:04 | disposition home or self-care (01) ==
LOC: ER 11:21
DX: N45.3 Epididymo-orchitis (principal); N43.3 Hydrocele, unspecified; N50.812 Left testicular pain; F17.200 Nicotine dependence, unspecified, uncomplicated
CPT/HCPCS: 36415; 87086; 85025; 87088; 81001; 87491; 87591; 76870; 93976; J3490; J0696; 87186; 96374; 96375; 99284